=== PATIENT | female | born 1940 | race Caucasian/White ===

== ENCOUNTER 2019-12-27 11:45 | Outpatient (CLI) | payer MEDICARE, SELFPAY ==
--- NOTE | ~2019-12-27 | MM_ITS ---
EXAMINATION: MM screening [facility] BI w mei HISTORY: Screening mammogram TECHNIQUE: Craniocaudal and mediolateral oblique 3-D tomosynthesis images were obtained and synthetic 2-D images were generated. CAD analysis was submitted and interpreted. COMPARISON: 07/16/2018, 03/02/2017, 02/10/1916 BREAST PARENCHYMAL COMPOSITION: The breasts are almost entirely fatty. FINDINGS: A stable intramammary lymph node is present in the upper outer quadrant of the right breast . There is no evidence of suspicious mass, calcification, or architectural distortion to suggest jeff gnancy in either breast. There has been no suspicious interval change. IMPRESSION: 1. No mammographic evidence of malignancy. 2. Recommend routine screening mammography while the patient remains in good health. BI-RADS Category 2: Benign finding(s). Reviewed, dictated and finalized at location A. UCT PROMOTER SALES PERSON IMPRESSION: 1. No mammographic evidence of malignancy. 2. Recommend routine screening mammography while the patient remains in good he alth. BI-RADS Category 2: Benign finding(s).
== END 2019-12-27 11:46 | disposition home or self-care (01) ==
PROVIDERS: PCP Family Medicine; Visit Provider Family Medicine
DX: Z12.31 Encounter for screening mammogram for malignant neoplasm of breast (principal)
CPT/HCPCS: 77063; 77067

== ENCOUNTER 2021-03-15 15:14 | Outpatient (CLI) | payer MEDICARE, SELFPAY ==
--- NOTE | ~2021-03-15 | MM_ITS ---
EXAMINATION: MM screening [facility] BI w mei HISTORY: Screening mammogram TECHNIQUE: Craniocaudal and mediolateral oblique 3-D tomosynthesis images were obtained and synthetic 2-D images were generated. CAD analysis was submitted and interpreted. COMPARISON: 12/27/2019, 07/16/2018, 03/02/2017 BREAST PARENCHYMAL COMPOSITION: The breasts are almost entirely fatty. FINDINGS: A stable intramammary lymph node is again noted in the upper outer quadrant of the right br east. There is no evidence of suspicious mass, calcification, or architectural distortion to suggest malignancy in either breast. There has been no suspicious interval change. IMPRESSION: 1. No mammographic evidence of malignancy. 2. Recommend routine screening mammography while the patient remains in good health. BI-RADS Category 2: Benign finding(s). Reviewed, dictated and finalized at location A. IMPRESSION: 1. No mammographic evidence of malignancy. 2. Recommend routine screening mammography while the patient remains in good he alth. BI-RADS Category 2: Benign finding(s).
== END 2021-03-15 15:15 | disposition home or self-care (01) ==
PROVIDERS: PCP Family Medicine; Visit Provider Family Medicine
DX: Z12.31 Encounter for screening mammogram for malignant neoplasm of breast (principal)
CPT/HCPCS: 77063; 77067

== ENCOUNTER → 2022-04-16 15:13 | Outpatient (CLI) | payer MEDICARE, SELFPAY ==
--- NOTE | ~2022-04-16 | MM_ITS ---
EXAMINATION: MM screening [facility] BI w mei HISTORY: Screening mammogram TECHNIQUE: Craniocaudal and mediolateral oblique 3-D tomosynthesis images were obtained and synthetic 2-D images were generated. CAD analysis was submitted and interpreted. COMPARISON: 03/15/2021, 12/2019, 07/12/2018 bilateral screening mammogram examinations BREAST PARENCHYMAL COMPOSITION: The breasts are almost entirely fatty. FINDINGS: Occasional bilateral benign calcifications. Stable small circumscribed right axillary tail benign-appearing lymph node. There is no evidence of suspicious mass, calcification, or architectural distortion to suggest malignancy in either breast. There has been no suspicious interval change. IMPRESSION: 1. No mammographic evidence of malignancy. 2. Recommend routine screening mammography in one year. BI-RADS Category 2: Benign finding(s). Reviewed, dictated and finalized at location A.
--- NOTE | ~2022-04-16 | DEXA_ITS ---
Bone Density Report Name: JENIFFER MCCAULEY Age: 82 Sex: Female Ethnicity: White Date of : 1940 Indication: postmenopausal; screening for osteoporosis; parental hip fracture; height loss; prior fracture; hysterectomy; Referring Provider: MIGUE ROCK Study: Bone densitometry was performed. Exam Date: April 16, 2022 Accession number: [id number] Bone Density: Region BMD T-score Z-score Classification AP Spine (L1-L4) 1.146 0.9 3.7 Normal Femoral Neck (Left) 0.896 0.4 2.9 Normal Total Hip (Left) 0.950 0.1 2.3 Normal Femoral Neck (Right) 0.826 -0.2 2.3 Normal Total Hip (Right) 0.904 -0.3 2.0 Normal Total Hip Mean 0.927 -0.1 2.2 Normal World Health Organization criteria for BMD impression classify patients as: Normal (T-score at or above -1.0), Osteopenia (T-score between -1.0 and -2.5), or Osteoporosis (T-score at or below -2.5). 10-year Fracture Risk: FRAX not reported because: All T-scores for Spine Total, Hip Total, Femoral Neck at or above -1.0 Clinical Information Provided by Patient: Has had a low trauma fracture Parent has had a hip fracture Has the following medical conditions: Hysterectomy Patient maximum height was 64.0 Menopause Age: 52 No regular weight bearing exercise Drinks caffeinated beverages Onset of menses at age 10 Number of children 3 Impression: The patient has normal bone mass. The patient has risk factors, including: parental hip fracture, previous fracture. Discussion: BONE DENSITY IS ABOVE THE MINIMUM DESIRABLE LEVEL AT ALL SKELETAL SITES TESTED. This patient?s bone mineral density is above the minimum desirable level (T-score -1.0 or better) at all sites measured. The patient should follow a healthful lifestyle (good nutrition with adequate calcium and vitamin D, and appropriate weight-bearing exercise). Follow-Up: Consider repeating this study in 5 years or sooner if there is some new clinical indication. Reported by: ADRIAN on 04/16/2022 4:00:00 PM. Reviewed, dictated and finalized at location A. OSMAN
== END ==
PROVIDERS: PCP Family Medicine; Visit Provider Family Medicine
DX: Z12.31 Encounter for screening mammogram for malignant neoplasm of breast (principal); Z78.0 Asymptomatic menopausal state
CPT/HCPCS: 77063; 77067; 77080

== ENCOUNTER 2022-12-23 07:53 | Outpatient (CLI) | payer MEDICARE, SELFPAY ==
--- NOTE | ~2022-12-23 | US_ITS ---
EXAMINATION: US abdomen limited DATE: 12/23/2022 08:47 INDICATION: Epigastric pain TECHNIQUE: Multiple grayscale and Doppler ultrasound images of the abdomen were obtained. COMPARISON: None available FINDINGS: Bowel gas obscures visualization of the pancreas. The visualized portions of the pancreas a re unremarkable. The liver is normal with normal echogenicity and echotexture. No surface nodularity. Normal hepatopetal flow in the main portal vein. The gallbladder is normal with no abnormal wall thi ckening, pericholecystic fluid or stones. The normal common bile duct measures 3 mm. There was no son ographic Hancock sign. IMPRESSION: 1. Normal sonographic study of the gallbladder. Reviewed, dictated and finalized at location L. NCIAL RISK MANAGER
== END 2022-12-23 07:54 | disposition home or self-care (01) ==
PROVIDERS: PCP Family Medicine; Visit Provider Family Medicine
DX: R10.13 Epigastric pain (principal)
CPT/HCPCS: 76705

== ENCOUNTER 2023-01-01 20:55 | Observation (INO) | payer MEDICARE, SELFPAY ==
[2023-01-01] VITALS (11 sets, daily range): BP systolic 127; BP diastolic 74; PULSE 58–74; RESP 10–17; TEMP 36.5; O2SAT 97–100
--- NOTE | ~2023-01-01 | NM_ITS ---
EXAMINATION: NM iain stress w perfusion DATE: 01/02/2023 14:06 INDICATION: Chest pain. TECHNIQUE: Rest images were obtained following intravenous administration of 10.5 mCi Tc99m tetrofosm in (Myoview). The patient was infused intravenously with Lexiscan (regadenoson). Then, 33.9 mCi Tc99m tetrofosmin (Myoview) was administered intravenously, and stress images were obtained. Data was adama nstructed into short axis and horizontal and vertical long axis SPECT images. Gated SPECT images were also obtained. COMPARISON: Chest CT 01/30/2023 FINDINGS: There is no definite reversible or fixed perfusion abnormality to suggest ischemia or infar ction. There is no segmental wall motion abnormality. Left ventricular ejection fraction measures > 70%. IMPRESSION: 1. No definite ischemia or infarct. 2. Normal left ventricular ejection fraction measuring >70%. Reviewed, dictated and finalized at location A. ORATE DEVELOPMENT ANALYST
--- NOTE | ~2023-01-01 | CT_ITS ---
Clinical Indication: Chest pain, shortness of breath CT Scan of the Chest with Contrast: Technique: Contiguous sections were acquired throughout the chest after intravenous administration of 100 cc of Omnipaque 350. Dose reduction technique was used on this scan by utilizing automated expos ure control and iterative reconstruction technique. The dose-length product (DLP) was 170.41 mGy-cm. Findings: There is no evidence of any significant mediastinal, hilar or axillary lymphadenopathy. No large cent ral pulmonary embolus seen. Motion artifact limits evaluation for small, more peripheral pulmonary em boli. There is no evidence of aortic dissection or aneurysm. There is no evidence of pleural or pericardial effusion. 4 mm right lower lobe subpleural nodule noted (axial image 70). Lungs otherwise are essentially clear . Images through the upper abdomen reveal no abnormalities. Impression: No large central pulmonary embolus. Motion artifact limits evaluation for small, more peripheral pulm onary emboli. 4 mm right lower lobe subpleural nodule. According to Fleischner Society criteria, for a low-risk pat ient, no further follow-up required. For a high-risk patient, consider 12 month follow-up CT. Reviewed, dictated and finalized at [facility]. ING AND UNLOADING SUPERVISOR Impression: No large central pulmonary embolus. Motion artifact limits evaluation for small , more peripheral pulmonary emboli. 4 mm right lower lobe subpleural nodule. According to Fleischner Society criter ia, for a low-risk patient, no further follow-up required. For a high-risk kaycee ent, consider 12 month follow-up CT.
--- NOTE | ~2023-01-01 | XR_ITS ---
EXAMINATION: XR chest 1V portable DATE: 01/01/2023 21:41 INDICATION: Chest pain TECHNIQUE: frontal view of the chest was obtained. COMPARISON: Chest radiograph dated 07/04/2014 FINDINGS: Mild bronchial wall thickening in the bilateral infrahilar regions. No focal airspace opacities, pleu ral effusion or pneumothorax. The cardiomediastinal silhouette is normal. IMPRESSION: 1. Mild bronchial wall thickening in the bilateral infrahilar regions without focal airspace opacitie s which could represent bronchitis, reactive airway disease/asthma or minimal pulmonary edema. Reviewed, dictated and finalized at location A. STANT MANAGER IMPRESSION: 1. Mild bronchial wall thickening in the bilateral infrahilar regions without f ocal airspace opacities which could represent bronchitis, reactive airway disea se/asthma or minimal pulmonary edema.
--- NOTE | 2023-01-01 20:59 | ECG_ITS ---
Measurements Intervals [place] Rate: 69 P: 10 ID: 195 QRS: 3 QRSD: 86 T: 44 QT: 382 QTc: 410 Interpretive Statements SINUS RHYTHM NORMAL ECG NO PREVIOUS ECG AVAILABLE FOR COMPARISON Electronically Signed On 01-02-2023 13:05:30 FILM PROCESSOR by Stewart Perez M.D.
--- NOTE | 2023-01-01 21:28 | PC.NURSE ---
Patient states she is feeling better and her chest pain is at a 1 at this time
--- NOTE | 2023-01-01 21:34 | ED.ABDPAIN ---
HPI - Abdominal Pain General Chief Complaint: Abdominal Pain <DANYA Pickard Last Filed: 01/02/23 03:04> Stated Complaint: abd pain <DANYA Pickard Last Filed: 01/02/23 03:04> Time Seen by Provider: 01/01/23 21:21 <DANYA Pickard Last Filed: 01/02/23 03:04> History of Present Illness HPI narrative: Patient is an 82-year-old female with a history of GERD here for evaluation of intermittent episodes of chest pain over the past several days. Patient states that the pain comes on at random, lasting minutes for time, described as a pressure across the front of her chest. The pain resolves without intervention, possibly worse with exertion. Currently she feels the pain in her epigastric region, similar to her history of GERD. She states that the pain is associated with a woozy sensation in her head and some shortness of breath. Positive sick contacts. Denies cough, headache, vomiting, fevers, leg swelling or pain. <DANYA Pickard Last Filed: 01/02/23 03:04> Related Data Home Medications: Home Medications Medication Instructions Recorded Confirmed fluticasone propionate 50 1 spray intranasal DAILY 12/28/19 11/10/22 mcg/actuation nasal spray,suspension lactobacillus combination no.8 3 See Rx Instructions PO DAILY 12/28/19 11/10/22 billion cell capsule (Adult Probiotic) multivitamin with minerals-ferrous mg PO 12/28/19 11/10/22 sulfate 4.5 mg iron tablet (One Daily Multivitamins with Minerals) psyllium husk 0.52 gram capsule 0.52 gm PO DAILY 12/28/19 11/10/22 (Fiber (psyllium husk)) aspirin 81 mg tablet,delayed 81 mg PO DAILY 08/10/20 11/10/22 release loratadine 10 mg tablet (Claritin) 10 mg PO DAILY 08/14/20 11/10/22 <DANYA Pickard Last Filed: 01/02/23 03:04> Allergies/Adverse Reactions: Allergies Allergy/AdvReac Type Severity Reaction Status Date / Time nitrofurantoin Allergy Unknown unknown Verified 01/01/23 21:05 Sulfa (Sulfonamide Allergy Unknown Skin Verified 01/01/23 21:05 Antibiotics) irritation typhoid-paratyphoid vaccine Allergy Unknown unknown Verified 01/01/23 21:05 ciprofloxacin [From Cipro] AdvReac Intermediate tingling Verified 01/01/23 21:05 throughout body; electrical impulses all over NITROFURANTOIN MACROCRYSTAL Allergy Unknown unknown Uncoded 01/01/23 21:05 <Sonia Oden PA-C - Last Filed: 01/02/23 03:04> Review of Systems Review of Systems: Gen: Denies fevers or chills Eyes: Denies eye pain or visual change ENT: Denies congestion Respiratory: Reports shortness of breath CV: Reports chest pain GI: Reports epigastric abdominal pain denies burning, urgency, frequency or hematuria Musculoskeletal: Denies back pain or muscle pain Neuro: Denies numbness, tingling, weakness or focal weakness Skin: Denies rash Except as documented, all other systems reviewed and negative <DANYA Pickard Last Filed: 01/02/23 03:04> [facility] Past Medical History Medical History: Medical History Acquired pes planovalgus of right foot Arthritis Arthritis of foot, degenerative Carpal tunnel syndrome Cataract (~2015) Colon polyp (~2017) Fracture of left patella Hearing loss Kidney cysts (~2007) Skin cancer <DANYA Pickard Last Filed: 01/02/23 03:04> Surgical History Surgical History: Surgical History H/O: hysterectomy (~1999) History of carpal tunnel surgery <DANYA Pickard Last Filed: 01/02/23 03:04> Family History Family History: Family History Mother Hypertension Family history of elevated blood lipids Cerebrovascular accident, Onset Age: 92 Patient's mother is Family history of dementia Father
[2023-01-01] MEDS: ASPIRIN 81 MG CHEWABLE TABLET 324 MG PO (21:41)
[2023-01-01 22:05] LABS: Basophils Percent Auto 0.5 % (0.2-1.2); Eosinophils Absolute Auto 0.1 K/mm3 (0-0.3); Eosinophils Percent Auto 2.1 % (0-4.4); Hematocrit 37.8 % (37.0-47.0); Lymphocytes Absolute Auto 1.55 K/mm3 (0.9-3.2); Lymphocytes Percent Auto 35.6 % (18.3-44.2); Mean Corpuscular HGB Conc 31.7 g/dl (32-36); Mean Corpuscular Hemoglobin 27.3 pg (26-34); Mean Corpuscular Volume 86.1 fl (80-100); Mean Platelet Volume 11.6 fl (7.4-10.4); Monocytes Absolute Auto 0.5 K/mm3 (0.1-0.6); Monocytes Percent Auto 10.8 % (2.6-8.5); Neutrophils Absolute Auto 2.2 K/mm3 (1.3-6.7); Platelet Count Result 147 k/mm3 (150-375); Red Blood Count 4.39 M/mm3 (4.2-5.4); Red Cell Distribution Width 15.6 % (11.5-14.5); White Blood Count 4.4 K/mm3 (4.5-10.0)
[2023-01-01 22:16] LABS: Alanine Aminotransferase 22 U/L (6-35); Alkaline Phosphatase 55 U/L (38-126); Anion Gap 4 mmol/L (8-16); Aspartate Amino Transferase 28 U/L (14-36); Bilirubin,Total 0.5 mg/dL (0.2-1.3); Blood Urea Nitrogen 27 mg/dL (7-17); Calcium 8.7 mg/dL (8.4-10.2); Carbon Dioxide 29 mmol/L (22-30); Chloride 103 mmol/L (98-107); Estimated CRCL calculation 47 ml/min; Estimated Glomerular Filt Rate > 60; Glucose 93 mg/dL (65-110); Lipase 202 U/L (23-300); Sodium 136 mmol/L (137-145)
[2023-01-01 22:17] LABS: Prothrombin Time 13.2 Seconds (11.1-14.7)
[2023-01-01 22:18] LABS: Partial Thromboplastin Time 29.2 SECONDS (22.3-36.8)
[2023-01-01 22:27] LABS: Troponin I < 0.012 ng/mL (0.000-0.034)
[2023-01-01 22:42] LABS: Influenza A QL RT-PCR Negative (Negative); Influenza B QL RT-PCR Negative (Negative); SARS-CoV-2 RNA PCR Negative
[2023-01-01] MEDS: BELLADONNA ALK/PHENOB ELIX 10 ML, MAG HYDROX/ALUMINUM HYD/SIMETH 30 ML, LIDOCAINE HCL 2... PO (22:58)
[2023-01-01 23:57] LABS: D Dimer 1.45 ug/mL (<0.48)
[2023-01-02] VITALS (16 sets, daily range): BP systolic 101–140; BP diastolic 52–82; PULSE 55–69; RESP 9–23; TEMP 36.4–36.6; O2SAT 94–100; BMI 26.9
[2023-01-02] MEDS: SODIUM CHLORIDE 0.9% IV 1,000 ML 999 ML IV CONT (02:26)
[2023-01-02 04:16] LABS: Troponin I < 0.012 ng/mL (0.000-0.034)
--- NOTE | 2023-01-02 06:42 | ADMGEN ---
This patient, Desire Pearson, was admitted to Intensive Care Unit-10 on 634 at 01/02/2023. Patient/family oriented to hospital policies and general routines including ID bracelet, bed and alarms, visiting hours, pain management, procedures, bathroom and other care routines, personal items, smoking policy, room service/diet, and visiting hours. Information on how to activate the Rapid Response Team has been discussed. Patient/Family are encouraged to report perceived risks to care and to ask questions if they do not understand what they are told or what they should do.
--- NOTE | 2023-01-02 10:13 | PM.IMHP ---
H&P: HPI History of Present Illness Date/Time: 01/02/23 10:13 Chief Complaint: chest pain Narrative: this 82-year-old female who presents to the ER with pinning of burning sensation in the chest in the retrosternal area across the chest associated with shortness of breath lasting for few minutes which occurred last night. She does have history of GERD and is on famotidine. She was feeling a little woozy in her head and some shortness of breath associated with these symptoms. She has had episodes like this in the past also had Holter monitor which did not reveal any significant arrhythmias. She has no previous history of coronary artery disease in the past not had stress test done. In the ER she was evaluated with EKG which was normal sinus rhythm with no acute ST-T changes. She also had a troponin done which was negative and serial troponins will done which remained negative. See also had a CTA done which was negative for large PE. Denies any cough nausea vomiting or abdominal pain. She is admitted in this setting for further evaluation and management. Review of Systems Review of Systems: - CONSTITUTIONAL: Denies weight loss, fever and chills. - HEENT: Denies changes in vision and hearing - RESPIRATORY: reports SOB and denies cough. - CV: Denies palpitations and reports CP. - GI: Denies abdominal pain, nausea, vomiting and diarrhea. - : Denies dysuria and urinary frequency. - MSK: Denies myalgia and joint pain. - SKIN: Denies rash and pruritus. - NEUROLOGICAL: Denies headache and syncope. - PSYCHIATRIC: Denies recent changes in mood. Denies anxiety and depression. [facility] Past Medical History Medical History Acquired pes planovalgus of right foot Arthritis Arthritis of foot, degenerative Carpal tunnel syndrome Cataract (~2015) Colon polyp (~2017) Fracture of left patella Hearing loss Kidney cysts (~2007) Skin cancer Surgical History Surgical History H/O: hysterectomy (~1999) History of carpal tunnel surgery Family History Family History (Updated 01/02/23 @ 07:00 by Shaneka Luna RN) Mother Patient's mother is Family history of dementia Hypertension Cerebrovascular accident, Onset Age: 92 Father Family history of kidney disease, Onset Age: 81 Family history of malignant neoplasm of kidney Patient's father is Family history of Parkinson's disease Sibling Hypertension Other Family history of arthritis Family history of elevated blood lipids Family history of malignant neoplasm Family history of malignant neoplasm of breast in first degree relative Family history of osteoarthritis Social History Social History (Updated 11/10/22 @ 11:35 by Stephanie Sanabria [facility]) Smoking status: Never smoker Second hand tobacco smoke exposure: No Alcohol intake: never Substance use: never Substance use type: does not use Lack of Transportation: No Lack of Food: Never True Current Housing: I Have Housing Concerned About Future Housing: No Difficulty Paying Gas/Electric Bills: No Difficulty Paying for Meds: No Currently Unemployed: No Education: Master's Degree or Higher Difficulty w/ Childcare or Family Care: No Living arrangements: with family Occupation/Education: retired Gender identity (if verbalized by the patient): Female Sexual Orientation (if Verbalized by the Patient): Straight or Heterosexual Spiritual care concerns: No Agree to blood products: Yes Meds Home Medications and Allergies Home Medications Medication Instructions Recorded Confirmed Type fluticasone propionate 50 1 spray intranasal QPM 12/28/19 01/02/23 History mcg/actuation nasal spray,suspension lactobacillus combination no.8 3 See Rx Instructions PO DAILY 12/28/19 01/02/23 History billion cell capsule (Adult Probiot
--- NOTE | 2023-01-02 10:30 | EST_ITS ---
Patient Info Name: Desire Pearson Age: 82 years : 1940 Gender: Female Ht: 62 in Wt: 150 lbs BSA: 1.74 m2 HR: 54 bpm BP: 129 / 80 mmHg Heart Rhythm: Sinus Rhythm Exam Date: 01/02/2023 1:09 PM Exam Location: [facility] Stress Patient Status: Outpatient Admit Date: 01/02/2023 Staff Ordering Physician: Jadiel Wells MD Attending Provider: Claudia Valencia MD Exercise Technologist: Danika Dutta CT Exercise Physician: Garrett Zuñiga DO Exam Type: CA stress iain w NM Study Info Indications R07.9 - Chest pain, unspecified A regadenoson stress test was performed. Summary 1. 1. Negative lexiscan stress test for ischemic ST changes by ECG criteria. 2. 2. Stable hemodynamics throughout the test. 3. 3. Nuclear scan to follow and will be reported separately. Please correlate with it. 4. 4. Patient informed of the above results. Protocol: Lexiscan Stress ECG Details Stage: REST Duration (min): 0 min : 54 sec HR (bpm): 55 SBP (mmHg): 129 DBP (mmHg): 80 Stage: REST Duration (min): 5 min : 33 sec HR (bpm): 64 SBP (mmHg): 129 DBP (mmHg): 80 Stage: STAGE 1 Duration (min): 0 min : 59 sec HR (bpm): 91 SBP (mmHg): 128 DBP (mmHg): 74 Stage: RECOVERY Duration (min): 1 min : 0 sec HR (bpm): 94 SBP (mmHg): 128 DBP (mmHg): 74 Stage: RECOVERY Duration (min): 2 min : 0 sec HR (bpm): 90 SBP (mmHg): 128 DBP (mmHg): 74 Stage: RECOVERY Duration (min): 3 min : 0 sec HR (bpm): 91 SBP (mmHg): 135 DBP (mmHg): 72 Stage: RECOVERY Duration (min): 3 min : 19 sec HR (bpm): 88 SBP (mmHg): 135 DBP (mmHg): 72 Rest HR: 64 bpm Peak HR: 94 bpm Rest Sys BP: 129 mmHg Peak Sys BP: 135 mmHg Max Pred HR: 136 bpm % Max Pred HR: 69 % Target HR: 116 bpm Max RPP: 12,690 bpm*mmHg Termination Reason: Completed protocol Cardiac Symptoms: Shortness of breath Total Time: 1 min : 0 sec Rest Carl BP: 80 mmHg Peak Carl BP: 72 mmHg Total Dose: 0.4 mg Resting ECG Sinus rhythm. Stress ECG No ST changes. Arrhythmias None. Report Signatures
[2023-01-02] MEDS: ACIDOPHILUS/BULGARICUS CHEWABLE TABLET 1 TABLET PO (14:16)
[2023-01-02] MEDS: FAMOTIDINE 20 MG TABLET 40 MG PO (14:16)
[2023-01-02] MEDS: PANTOPRAZOLE SODIUM IV 40 MG VIAL IV PUSH (14:16)
[2023-01-02] MEDS: LORATADINE 10 MG TABLET PO (14:16)
[2023-01-02] MEDS: MULTIVITAMINS /C LUTEIN (CENTRUM SILVER) TABLET *BKC 1 TAB PO (14:17)
--- NOTE | 2023-01-02 15:51 | PM.DS ---
DS: Admitting Diagnosis Discharge Date 01/02/2023 Admitting Diagnosis Chest pain DS: Discharge Diagnosis Discharge Diagnosis (1) Atypical chest pain: Code(s): R07.89 - Other chest pain Status: Acute (2) GERD (gastroesophageal reflux disease): Code(s): K21.9 - Gastro-esophageal reflux disease without esophagitis Status: Acute DS: Summary Hospital Course Hospital Course: #? atypicalchest pain EKG normal sinus rhythm.? Troponins negative x3.? Chest x-ray with mild bronchial wall thickening in the bilateral infrahilar regions without focal airspace opacities which could represent bronchitis reactive airway disease/ asthma or mild pulmonary edema. CTA is negative for large PE? And no evidence of aortic dissection or aneurysm.? There is 4 mm right lower lobe subpleural nodule otherwise lungs are essentially clear.COVID/flu negative.? Discussed finding with patient.? She was further evaluated with this stress test which came back normal. This is most likely related to her underlying GERD. She is on famotidine at home will was changed to Protonix. She will continue to follow-up with her PCP as an outpatient basis. ?#History of GERD? start Protonix ?#elevated D-dimer? CTA negative for PE ?#DVT prophylaxis? SCDs ?#Code status full code Time Spent with Patient Time attestation: Total time spent providing and/or coordinating discharge services: 45 minutes Exam Narrative: GENERAL: The patient is well developed, not in acute distress HEENT: Nonicteric sclerae, PERRLA, EOMI. Oropharynx clear. Moist mucous membranes. Conjunctivae appear well perfused. CHEST: Chest wall is nontender. HEART: Regular rate and rhythm without murmur, rubs, or gallops LUNGS: Clear to auscultation bilaterally. no respiratory distress ABDOMEN: Soft, positive bowel sounds, non-tender, no organomegaly. SKIN: No rash, no excessive bruising, petechiae, or purpura. NEUROLOGIC: Cranial nerves II-XII intact, alert and oriented x 3, no gross motor deficits EXTREMITIES: no edema, cyanosis or clubbing DS: Data Data Completed and Pending Labs on day of discharge: Labs from last 24 hours 01/02/23 01/01/23 01/01/23 03:44 21:43 21:43 WBC RBC Hgb Hct MCV MCH MCHC RDW Plt Count MPV Immature Gran % (Auto) Neut % (Auto) Lymph % (Auto) [place] % (Auto) Eos % (Auto) Baso % (Auto) Lymph # (Auto) [place] # (Auto) Eos # (Auto) Baso # (Auto) Abs Immat Gran (auto) Absolute Neuts (auto) Absolute Nucleated RBC Nucleated RBC % PT INR APTT D-Dimer 1.45 H Sodium Potassium Chloride Carbon Dioxide Anion Gap BUN Creatinine Estim Creat Clear Calc Estimated GFR Glucose Calcium Total Bilirubin AST ALT Alkaline Phosphatase Troponin I < 0.012 Total Protein Albumin Lipase Influenza A (RT-PCR) Negative Influenza B (RT-PCR) Negative SARS-CoV-2 RNA (RT-PCR) Negative 01/01/23 01/01/23 01/01/23 21:43 21:43 21:43 WBC 4.4 L RBC 4.39 Hgb 12.0 Hct 37.8 MCV 86.1 MCH 27.3 MCHC 31.7 L RDW 15.6 H Plt Count 147 L MPV 11.6 H Immature Gran % (Auto) 0.0 Neut % (Auto) 51.0 Lymph % (Auto) 35.6 [place] % (Auto) 10.8 H Eos % (Auto) 2.1 Baso % (Auto) 0.5 Lymph # (Auto) 1.55 [place] # (Auto) 0.5 Eos # (Auto) 0.1 Baso # (Auto) 0.0 Abs Immat Gran (auto) 0.00 Absolute Neuts (auto) 2.2 Absolute Nucleated RBC 0.0 Nucleated RBC % 0.0 PT 13.2 INR 1.0 APTT 29.2 D-Dimer Sodium 136 L Potassium 4.0 Chloride 103 Carbon Dioxide 29 Anion Gap 4 L BUN 27 H Creatinine 0.70 Estim Creat Clear Calc 47 Estimated GFR > 60 Glucose 93 Calcium 8.7 Total Bilirubin 0.5 AST 28 ALT 22 Alkaline Phosphatase 55 Troponin I < 0.012 Total Protein 7.0 Albumin 4.0 Lipase 202 Influenza A (R
== END 2023-01-02 16:33 | disposition home or self-care (01) ==
LOC: ANHED 21:44 → ANHICU 01-02 06:39
PROVIDERS: Emergency Medicine; Admitting Provider Internal Medicine; Emergency Provider Physician Assistant; PCP Family Medicine; Visit Provider Internal Medicine
DX: R07.89 Other chest pain (principal); K21.9 Gastro-esophageal reflux disease without esophagitis; R06.02 Shortness of breath; R79.89 Other specified abnormal findings of blood chemistry; R91.8 Other nonspecific abnormal finding of lung field; R91.1 Solitary pulmonary nodule; Z20.822 Contact with and (suspected) exposure to COVID-19; Z79.82 Long term (current) use of aspirin; Z79.899 Other long term (current) drug therapy
CPT/HCPCS: 36415; 71045; 71275; 78452; 80053; 83690; 84484; 85025; 85380; 85610; 85730; 87636; 93005; 93017; 96361; 96374; 99285; A9270; A9502; C9113; G0378; J2405; J2785; J7030; Q9967

== ENCOUNTER 2023-04-08 14:00 | Outpatient (RCR) | payer MEDICARE, SELFPAY ==
--- NOTE | 2023-03-09 15:39 | OTOPEVAL1 ---
Assessment and note entered by Tye Sim, DALLAS/Keith, CHT Evaluation Information Assessment Status Evaluation Diagnosis Right wrist pain Onset Unknown Subjective Information Patient reporting right wrist pain. She states she's had wrist pain for a couple of years, but that it has gotten worse, especially in the last year or so. She is s/p carpal tunnel release Dec 2022. She wears a brace at night. Reporting pain with any sort of heavy/heavier lifting. Reports pain when her wrist is in an odd angle and she tries to lift something. She also reports weakness. Pointing to the ulnar side of the wrist as the site of her pain. Reported Pain Level Pain Score 0: Self Report Additional Pain Score Comments No pain at rest today. Right wrist pain increased to 1-2/10 after MMT. Worst pain in the last week is 4/10 with lifting. This pain is very sudden and resolves quickly. All localized to the ulnar side of the R wrist. Assessment OT Clinical Summary Patient referred to outpatient hand therapy with dx of right wrist pain. She cannot pinpoint a particular injury to the wrist, but rather that the pain has progressively gotten worse over the past few years. She does have a prominent ulnar styloid as well as slight ulnar drift of the fingers, indicative of RA. She reports never being tested for RA, however. In general she does have gross right wrist and hand weakness and pain that she will benefit from skilled treatment. Treatments to include HEP instruction and progression, modalities for pain, and strengthening to improve the functional mechanics of the involved, painful joints. Plan of Care Interventions Therapeutic Exercise,Manual Therapy,Therapeutic Activities,Hot Pack/Cold Pack,Ultrasound,Paraffin OT Services Indicated Yes Treatment Frequency and 1x/week for 4 weeks Duration These treatments will address the objective and functional deficits as defined above. The patient will be advanced safely and appropriately in order for the patient to progress towards his/her prior level of function. Additional exercises will be introduced and as well as a comprehensive home exercise program upon discharge, if needed, ?to ensure carryover of functional gains achieved in the clinic. This treatment plan has been reviewed and agreement upon by the patient.
--- NOTE | 2023-04-08 14:53 | OTOPDC ---
Assessment and note entered by Tye Sim, JERRYR/Keith, CHT Evaluation Information Assessment Status Discharge Diagnosis Right wrist pain Onset Unknown Subjective Information Patient has participated in 5 hand therapy sessions. She reports that she has been having less wrist pain with hand/UE use. Reports she still feels a little weak, but has been working on visual artist strengthening and wrist strengthening with 1 lb at home. States 2 lbs is still too heavy. Patient does have some hypothenar eminence atrophy noted in the right hand. With ulnar nerve glides she does have some involuntary twitching of the right pinky also. We have been working on nerve glides as well as improved body mechanics to reduce ulnar nerve irritation. Reported Pain Level Pain Score 0: Self Report Additional Pain Score Comments No pain at rest. Reporting 1/10 pain at worst in the past week. This improved from 4/10. Assessment OT Clinical Summary Patient referred to outpatient hand therapy with dx of right wrist pain. She cannot pinpoint a particular injury to the wrist, but rather that the pain has progressively gotten worse. Overall the patient has made progress over the past 4 weeks with reduced pain and improved strength. She does have signs/symptoms of ulnar nerve irritation for which she has been completing nerve flossing exercises. Therapy has also been focusing on strengthening of the wrist and hand. 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 At this time she is independent with all materials. Plan to discharge the patient independent with HEP. She is in agreement. Plan for her to complete her HEP independently until her next MD follow up. Plan of Care OT Services Indicated No
== END 2023-04-09 09:32 | disposition home or self-care (01) ==
LOC: ANHOT 14:00
PROVIDERS: PCP Family Medicine; Visit Provider Family Medicine
DX: M25.539 Pain in unspecified wrist (principal)
CPT/HCPCS: 97018; 97110; 97140; 97166

== ENCOUNTER → 2023-05-22 08:07 | Outpatient (CLI) | payer MEDICARE, SELFPAY ==
--- NOTE | ~2023-05-22 | XR_ITS ---
Thoracic spine: Clinical Indication: Back pain AP and lateral views were performed. No fracture is seen. There is normal alignment of the vertebrae. There is advanced degenerative disc narrowing at T11-T12. Remaining disc spaces are relatively well-preserved. Paravertebral soft tissue s appear normal. Impression: Advanced degenerative disc narrowing at T11-T12. Reviewed, dictated and finalized at location . Impression: Advanced degenerative disc narrowing at T11-T12.
--- NOTE | ~2023-05-22 | XR_ITS ---
Lumbosacral Spine: AP, oblique, and lateral views Clinical History: Pain COMPARISON: 12/27/2018 Findings: There is 28 degrees dextroscoliosis of lumbar spine. No fracture or subluxation evident oth erwise. There is advanced facet arthropathy throughout the lumbar spine, worst at the lower lumbar le vels. There is moderate to advanced degenerative disc narrowing at L3-L4, L4-L5, L5-S1. The sacroilia c joints are normally outlined. Impression: 28 degree of dextroscoliosis. Advanced degenerative spondylitic changes, as detailed above. Reviewed, dictated and finalized at location M. Impression: 28 degree of dextroscoliosis. Advanced degenerative spondylitic changes, as detailed above.
== END ==
PROVIDERS: PCP Family Medicine; Visit Provider Family Medicine
DX: M54.9 Dorsalgia, unspecified (principal); M41.9 Scoliosis, unspecified; M47.816 Spondylosis without myelopathy or radiculopathy, lumbar region; M48.04 Spinal stenosis, thoracic region
CPT/HCPCS: 72072; 72110

== ENCOUNTER 2023-05-22 08:39 | Outpatient (CLI) | payer MEDICARE, SELFPAY ==
[2023-05-22 15:25] LABS: Basophils Percent Auto 0.1 % (0.2-1.2); Eosinophils Percent Auto 0.1 % (0-4.4); Hemoglobin 12.3 g/dL (12.0-15.0); Immature Granulocyte Absolute 0.01 K/mm3 (0.00-0.031); Immature Granulocyte Percent A 0.1 % (0-0.5); Lymphocytes Absolute Auto 0.81 K/mm3 (0.9-3.2); Lymphocytes Percent Auto 10.5 % (18.3-44.2); Mean Corpuscular HGB Conc 31.5 g/dl (32-36); Mean Corpuscular Hemoglobin 28.4 pg (26-34); Mean Corpuscular Volume 90.1 fl (80-100); Mean Platelet Volume 12.7 fl (7.4-10.4); Monocytes Absolute Auto 0.1 K/mm3 (0.1-0.6); Monocytes Percent Auto 1.6 % (2.6-8.5); Neutrophils Absolute Auto 6.7 K/mm3 (1.3-6.7); Neutrophils Percent Auto 87.6 % (45.5-73.1); Platelet Count Result 132 k/mm3 (150-375); Red Blood Count 4.33 M/mm3 (4.2-5.4); Red Cell Distribution Width 14.5 % (11.5-14.5); White Blood Count 7.7 K/mm3 (4.5-10.0)
[2023-05-22 17:13] LABS: Alanine Aminotransferase 25 U/L (6-35); Alkaline Phosphatase 64 U/L (38-126); Anion Gap 7 mmol/L (8-16); Aspartate Amino Transferase 36 U/L (14-36); Bilirubin,Total 0.7 mg/dL (0.2-1.3); Blood Urea Nitrogen 34 mg/dL (7-17); Calcium 9.4 mg/dL (8.4-10.2); Carbon Dioxide 27 mmol/L (22-30); Chloride 104 mmol/L (98-107); Cholesterol 184 mg/dL (0-200); Estimated Glomerular Filt Rate > 60; Glucose 133 mg/dL (65-110); HDL Direct 69 mg/dL; Potassium 4.4 mmol/L (3.4-5.0); Sodium 138 mmol/L (137-145); Triglycerides 47 mg/dL (<150)
[2023-05-22 17:24] LABS: LDL Cholesterol Direct 87 mg/dL
[2023-05-22 17:51] LABS: Thyroid Stimulating Hormone Reflex 0.556 uIU/mL (0.465-4.68)
== END 2023-05-22 08:40 | disposition home or self-care (01) ==
LOC: ANHGOSHLAB 08:40
PROVIDERS: PCP Family Medicine; Visit Provider Family Medicine
DX: E78.2 Mixed hyperlipidemia (principal); R20.2 Paresthesia of skin; R53.83 Other fatigue; E53.8 Deficiency of other specified B group vitamins; D72.819 Decreased white blood cell count, unspecified
CPT/HCPCS: 36415; 80053; 80061; 82607; 84443; 85025

== ENCOUNTER 2023-10-23 08:24 | Outpatient (CLI) | payer MEDICARE, SELFPAY ==
[2023-10-23 13:15] LABS: Alanine Aminotransferase 22 U/L (6-35); Albumin Level 3.5 g/dL (3.5-5.1); Alkaline Phosphatase 57 U/L (38-126); Anion Gap 9 mmol/L (8-16); Aspartate Amino Transferase 36 U/L (14-36); Bilirubin,Total 0.9 mg/dL (0.2-1.3); Blood Urea Nitrogen 28 mg/dL (7-17); Calcium 8.9 mg/dL (8.4-10.2); Carbon Dioxide 26 mmol/L (22-30); Chloride 103 mmol/L (98-107); Estimated Glomerular Filt Rate > 60; Glucose 127 mg/dL (65-110); Potassium 3.9 mmol/L (3.4-5.0); Sodium 138 mmol/L (137-145)
[2023-10-23 13:32] LABS: Hemoglobin A1C 5.4 % (<5.7)
== END 2023-10-23 08:25 | disposition home or self-care (01) ==
LOC: ANHGOSHLAB 08:25
PROVIDERS: PCP Family Medicine; Visit Provider Family Medicine
DX: R73.9 Hyperglycemia, unspecified (principal)
CPT/HCPCS: 36415; 80053; 83036

== ENCOUNTER 2024-02-23 14:45 | Outpatient (RCR) | payer MEDICARE, SELFPAY ==
--- NOTE | 2024-01-19 15:13 | OTOPEVAL1 ---
Assessment and note entered by Tye Sim, DALLAS/Keith, CHT Evaluation Information Assessment Status Evaluation Diagnosis De Quervain's, CMC OA Subjective Information Patient reports she received an injection to the 1st dorsal compartment ~4 weeks ago. She reports her pain has improved a lot since the injection. She reports some residual intermitting pain, especially with heavy lifting. She reports light tasks are feeling better. Reported Pain Level Pain Score 0: Self Report Additional Pain Score Comments No pain at rest. 1/10 pain with Angel's. Occasionally she gets sudden, sharp pains through the wrist. 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 She presents with residual pain/soreness and stiffness when moving through full ROM at the wrist and thumb. Grossly decreased strength for ADLs. Skilled OT indicated for use of modalities, manual therapy, therapeutic exercise, and HEP instruction and progression to facilitate optimal functional pain- free use of the left hand. Plan of Care Interventions Therapeutic Exercise,Manual Therapy,Therapeutic Activities,Hot Pack/Cold Pack,Paraffin OT Services Indicated Yes Treatment Frequency and 1x/week for 4 visits Duration These treatments will address the objective and functional deficits as defined above. The patient will be advanced safely and appropriately in order for the patient to progress towards his/her prior level of function. Additional exercises will be introduced and as well as a comprehensive home exercise program upon discharge, if needed, ?to ensure carryover of functional gains achieved in the clinic. This treatment plan has been reviewed and agreement upon by the patient.
--- NOTE | 2024-01-19 15:13 | OPREHPOC ---
Outpatient Therapy Plan of Care This is a Multidisciplinary Plan of Care that may contain components documented by all disciplines (PT, OT, and ST.) OT Problem 1 OT Problem #1 Knowledge Deficit OT Goal 1 Goal 1. Patient to be independent with instructed materials. Target Visit 5 OT Problem 2 OT Problem #2 Pain OT Goal 1 Goal 1. Patient to report no pain with lifting pots/ pans. Target Visit 5 OT Problem 3 OT Problem #3 Impaired Strength OT Goal 1 Goal 1. Patient to be able to complete wrist strengthening with 1 lb. free weight x20 reps in all planes without pain. 2. Patient to be able to complete research pharmacist strengthening with yellow theraputty x5 minutes without pain. Target Visit 5
--- NOTE | 2024-02-23 15:42 | OTOPDC ---
Assessment and note entered by Tye Sim, OTR/Keith, CHT OT Discharge Summary 02/23/24 Diagnosis De Quervain's, CMC OA Subjective Information Patient has been participating in OT focusing on improving functional strength of the left wrist/ hand. She reports no pain with use just feeling residual weakness. She is strengthening with 2 lb. free weights and putty. She reports good compliance with HEP. Reported Pain Level Pain Score 0: Self Report Assessment OT Clinical Summary Patient referred to OT with left wrist pain and dx of de Quervain's and CMC OA. Reassessment completed today. Patient has made great progress with reduced pain and is compliant with strengthening HEP. Reviewed strengthening exercises today and added some proximal strengthening to reduce distal strain with ADLs. Encouraged her to continue to work exercises into her routine for optimal results long-term. Patient is in agreement with discharge today. D/C with HEP. Plan of Care OT Services Indicated No
== END 2024-02-24 14:09 | disposition home or self-care (01) ==
LOC: ANHGOSHOT 14:45
PROVIDERS: PCP Family Medicine; Visit Provider Physician Assistant
DX: M18.12 Unilateral primary osteoarthritis of first carpometacarpal joint, left hand (principal); M65.4 Radial styloid tenosynovitis [de Quervain]
CPT/HCPCS: 97018; 97110; 97140; 97165

== ENCOUNTER 2024-03-08 18:46 | Emergency (ER) | payer MEDICARE, SELFPAY ==
[2024-03-08] VITALS (8 sets, daily range): BP systolic 107–148; BP diastolic 73–74; PULSE 63–73; RESP 15–20; TEMP 36.6; O2SAT 94–99
--- NOTE | ~2024-03-08 | XR_ITS ---
EXAMINATION: XR chest 2V DATE: 03/08/2024 19:05 INDICATION: Cardiac arrhythmia. TECHNIQUE: Frontal and lateral views of the chest were obtained. COMPARISON: Chest single view 01/01/2023 FINDINGS: There is mild scarring at the lung apices. Calcified right lung nodules are consistent with old granulomatous disease. No pleural effusion or pneumothorax. The heart size is normal. IMPRESSION: 1. No acute cardiopulmonary disease. Reviewed, dictated and finalized at location E.
--- NOTE | 2024-03-08 18:49 | ECG_ITS ---
SEE SCANNED COPY FOR CONFIRMED REPORT MTDD
[2024-03-08 19:09] LABS: Basophils Percent Auto 0.7 % (0.2-1.2); Eosinophils Absolute Auto 0.1 K/mm3 (0-0.3); Eosinophils Percent Auto 1.7 % (0-4.4); Hematocrit 39.7 % (37.0-47.0); Hemoglobin 12.8 g/dL (12.0-15.0); Immature Granulocyte Absolute 0.01 K/mm3 (0.00-0.031); Immature Granulocyte Percent A 0.2 % (0-0.5); Lymphocytes Absolute Auto 1.97 K/mm3 (0.9-3.2); Lymphocytes Percent Auto 36.7 % (18.3-44.2); Mean Corpuscular HGB Conc 32.2 g/dl (32-36); Mean Corpuscular Hemoglobin 28.3 pg (26-34); Mean Corpuscular Volume 87.6 fl (80-100); Mean Platelet Volume 12.1 fl (7.4-10.4); Monocytes Absolute Auto 0.5 K/mm3 (0.1-0.6); Monocytes Percent Auto 9.9 % (2.6-8.5); Neutrophils Absolute Auto 2.7 K/mm3 (1.3-6.7); Neutrophils Percent Auto 50.8 % (45.5-73.1); Platelet Count Result 148 k/mm3 (150-375); Red Blood Count 4.53 M/mm3 (4.2-5.4); Red Cell Distribution Width 17.3 % (11.5-14.5); White Blood Count 5.4 K/mm3 (4.5-10.0)
[2024-03-08 19:14] LABS: Alanine Aminotransferase 20 U/L (6-35); Albumin Level 4.1 g/dL (3.5-5.1); Alkaline Phosphatase 53 U/L (38-126); Anion Gap 7 mmol/L (4-12); Aspartate Amino Transferase 31 U/L (14-36); Bilirubin,Total 0.8 mg/dL (0.2-1.3); Blood Urea Nitrogen 27 mg/dL (7-17); Calcium 9.3 mg/dL (8.4-10.2); Carbon Dioxide 24 mmol/L (22-30); Chloride 109 mmol/L (98-107); Estimated CRCL calculation 40 ml/min; Estimated Glomerular Filt Rate > 60; Glucose 100 mg/dL (65-110); Lipase 244 U/L (23-300); Potassium 4.6 mmol/L (3.4-5.0); Sodium 140 mmol/L (137-145)
[2024-03-08 19:16] LABS: INR 0.9; Prothrombin Time 12.9 Seconds (11.1-14.7)
[2024-03-08 19:26] LABS: Troponin I < 0.012 ng/mL (0.000-0.034)
--- NOTE | 2024-03-08 20:33 | ED.ARRPALP ---
HPI - Arrhythmia/Palpitations General Chief Complaint: Arrhythmia/Palpitations Stated Complaint: palpitations Time Seen by Provider: 03/08/24 18:50 Source: patient Mode of arrival: ambulatory Limitations: no limitations History of Present Illness HPI narrative: 83-year-old with a history of CVA, hypertension here with the complaints of palpitations on and off for past several weeks. Patient states that on February 21, 2024 she had CVA and she was placed on Crestor and aspirin. Patient states that she has irregular heartbeat mostly in the evenings and night. She is presently wearing a Holter monitor. She denies any chest pain or shortness of breath or lightheadedness be MD complaint: irregular heart beat Onset (ago): week(s) Duration: intermittent Severity: moderate Associated symptoms: denies other symptoms Related Data Home Medications Medication Instructions Recorded Confirmed fluticasone propionate 50 1 spray intranasal QPM 12/28/19 02/22/24 mcg/actuation nasal spray,suspension lactobacillus combination no.8 3 See Rx Instructions PO DAILY 12/28/19 02/22/24 billion cell capsule (Adult Probiotic) multivitamin with minerals-ferrous 4.5 mg PO DAILY 12/28/19 02/22/24 sulfate 4.5 mg iron tablet (One Daily Multivitamins with Minerals) psyllium husk 0.52 gram capsule 0.52 gm PO DAILY 12/28/19 02/22/24 (Fiber (psyllium husk)) loratadine 10 mg tablet (Claritin) 10 mg PO DAILY 08/14/20 02/22/24 azelastine 0.05 % eye drops 1 drp EACH EYE BID 02/27/23 02/22/24 aspirin 81 mg tablet,delayed 81 mg PO DAILY 02/22/24 02/22/24 release mv-mn-folic 200 mcg-vit K 15 cap PO 02/22/24 02/22/24 mcg-lutein 5 mg-zeaxanthin 1 mg capsule (PreserVision AREDS 2 Plus Multivit) Allergies Allergy/AdvReac Type Severity Reaction Status Date / Time nitrofurantoin Allergy Unknown unknown Verified 03/08/24 18:56 Sulfa (Sulfonamide Allergy Unknown Skin Verified 03/08/24 18:56 Antibiotics) irritation typhoid-paratyphoid vaccine Allergy Unknown unknown Verified 03/08/24 18:56 ciprofloxacin [From Cipro] AdvReac Intermediate tingling Verified 03/08/24 18:56 throughout body; electrical impulses all over NITROFURANTOIN MACROCRYSTAL Allergy Unknown unknown Uncoded 02/22/24 09:10 Review of Systems Review of Systems: All systems reviewed & are unremarkable except as noted in HPI and below Constitutional: Constitutional: Reports no additional constitutional complaints Eyes: Eyes: Reports no additional eye complaints ENT: Reports system reviewed and no additional complaints, except as documented Cardiovascular: Cardiovascular: Reports as per HPI Respiratory: Respiratory: Reports no additional respiratory complaints Gastrointestinal: Gastrointestinal: Reports no additional gastrointestinal complaints Musculoskeletal: Musculoskeletal: Reports no additional musculoskeletal complaints Integumentary/Breasts: Skin/Breast: Reports system reviewed and no additional complaints, except as docu Neurologic: Reports system reviewed and no additional complaints, except as documented Psychiatric: Psychiatric: Reports no additional psychiatric complaints PMFSH Past Medical History Medical History Acquired pes planovalgus of right foot Arthritis Arthritis of foot, degenerative Carpal tunnel syndrome Cataract (~2015) Colon polyp (~2017) CVA (cerebral vascular accident) Fracture of left patella Hearing loss Kidney cysts (~2007) 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
== END 2024-03-08 20:43 | disposition home or self-care (01) ==
PROVIDERS: Emergency Provider Family Medicine; PCP Family Medicine
DX: R00.2 Palpitations (principal); I10 Essential (primary) hypertension; M19.079 Primary osteoarthritis, unspecified ankle and foot; Z86.73 Personal history of transient ischemic attack (TIA), and cerebral infarction without residual deficits; Z86.010 Personal history of colon polyps; Z85.828 Personal history of other malignant neoplasm of skin; Z90.710 Acquired absence of both cervix and uterus; Z79.82 Long term (current) use of aspirin; I49.1 Atrial premature depolarization
CPT/HCPCS: 36415; 71046; 80053; 83690; 84484; 85025; 85610; 85730; 93005; 99284

== ENCOUNTER 2024-05-23 11:20 | Outpatient (CLI) | payer MEDICARE, SELFPAY ==
[2024-05-25 01:49] LABS: TSH QUEST 2.51 mIU/L (0.40-4.50)
== END 2024-05-23 11:21 | disposition home or self-care (01) ==
LOC: ANHGOSHLAB 11:22
PROVIDERS: PCP Family Medicine; Visit Provider Internal Medicine Cardiovascular Disease
DX: I49.1 Atrial premature depolarization (principal)
CPT/HCPCS: 36415; 84481; 86376

== ENCOUNTER 2024-08-16 07:45 | Outpatient (CLI) | payer MEDICARE, SELFPAY ==
--- NOTE | 2024-09-12 10:05 | WPDSLEEPSTUD ---
Sleep Study Date of Study: 08/16/24 Ordering Provider: Clari Brink MD Interpreting Physician: Suzanne Hopkins MD Sleep Study Type: Polysomnogram Height: 1.57 m Weight: 68.039 kg Body Mass Index: 27.4 Neck Circumference (inches): 13 [employer]: 14 Reason for Sleep Study Hypersomnolence; palpitations; history of premature atrial tachycardia and insomnia * 05/04/2012 basic polysomnogram with and apnea hypopnea index of 2.4 Sleep History Desire Pearson is an 84-year-old woman with complaints of excessive daytime sleepiness. The patient had a TIA in January of 2024. Her medical comorbidities include arthritis, stroke, hearing loss, kidney cysts. She has difficulty falling asleep and staying asleep. 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 There may be a family history of sleep disordered breathing, she reports that her mother had loud snoring and ?was catching her breath in ?while sleeping. She uses fluticasone nasal spray. She rarely awakens at night with heartburn, belching or coughing. She frequently has difficulty sleeping when she has a cold. She does not wake up gasping for breath at night. She does not sweat excessively at night however she frequently has palpitations and irregular heartbeats in the day and the night but it is more noticeable to her at night. She occasionally falls asleep during the day, rarely falls asleep involuntarily, and rarely falls asleep while driving. She does not have loss of muscle tone with strong emotion. She occasionally has daytime difficulties due to excessive sleepiness. She is retired. She does not feel paralyzed on waking or falling asleep. She rarely has vivid dreamlike scenes upon awakening or falling asleep. She does not feel afraid to go to sleep. She rarely has nightmares. She rarely remembers her dreams. She frequently has racing thoughts. She rarely feels sad or depressed. She occasionally has anxiety. She occasionally notices parts of her body jerking. She occasionally kicks at night. She occasionally has crawling and aching feelings in her legs. She rarely has any kind of leg pain at night. She rarely has morning jaw pain. She is not aware whether not she grinds her teeth at night. She rarely is bothered by pain during the day. She is not awakened by pain during the night. She occasionally wakes up feeling stiff in the morning. She rarely wakes up with sore or achy muscles. She occasionally wakes up with pain in the neck and spine. She has occasional headaches. Her normal bedtime is 10:30 p.m., with a variable time to sleep onset. She typically awakens between 1 and 3 times during the night. On initial awakening to sleep. If she wakes the same time she may read. On the 3rd awakening she gets up and goes to another room to read. If she awakens a 4th time she will attend to some paperwork and try to get something accomplished. Her wake time varies. She keeps this same sleep pattern on weekends. She estimates getting 6 hours of sleep most nights. She feels refreshed after a short 10-15 minute nap. She is usually drowsy or tired upon awakening, and the level of tiredness will depend on how much sleep she had the night before. She usually feels better in the morning compared to other times of day but again this depends on how much sleep she had the night before. 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
[2024-09-12 10:51] VITALS: BMI 27.4
== END 2024-08-17 06:46 | disposition home or self-care (01) ==
LOC: ANHCSM 07:46
PROVIDERS: PCP Family Medicine; Visit Provider Family Medicine
DX: I63.9 Cerebral infarction, unspecified (principal); R00.2 Palpitations; G47.39 Other sleep apnea; G47.33 Obstructive sleep apnea (adult) (pediatric); Z72.821 Inadequate sleep hygiene; I49.1 Atrial premature depolarization
CPT/HCPCS: 95810

== ENCOUNTER 2024-09-05 09:02 | Outpatient (CLI) | payer MEDICARE, SELFPAY ==
[2024-09-05 14:38] LABS: Alanine Aminotransferase 21 U/L (6-35); Albumin Level 3.7 g/dL (3.5-5.1); Alkaline Phosphatase 55 U/L (38-126); Anion Gap 6 mmol/L (4-12); Aspartate Amino Transferase 47 U/L (14-36); Bilirubin,Total 0.9 mg/dL (0.2-1.3); Blood Urea Nitrogen 22 mg/dL (7-17); Calcium 8.8 mg/dL (8.4-10.2); Carbon Dioxide 30 mmol/L (22-30); Chloride 102 mmol/L (98-107); Cholesterol 117 mg/dL (0-200); Estimated Glomerular Filt Rate > 60; Glucose 89 mg/dL (65-110); HDL Direct 63 mg/dL; Potassium 4.6 mmol/L (3.4-5.0); Sodium 138 mmol/L (137-145); Triglycerides 56 mg/dL (<150)
[2024-09-05 14:50] LABS: LDL Cholesterol Direct < 30 mg/dL
== END 2024-09-05 09:03 | disposition home or self-care (01) ==
LOC: ANHGOSHLAB 09:03
PROVIDERS: PCP Family Medicine; Visit Provider Student in an Organized Health Care Education/Training Program
DX: I49.1 Atrial premature depolarization (principal); I63.9 Cerebral infarction, unspecified; R07.89 Other chest pain
CPT/HCPCS: 36415; 80053; 80061

== ENCOUNTER 2024-11-08 09:08 | Emergency (ER) | payer MEDICARE, SELFPAY ==
[2024-11-08 09:20] VITALS: BP 108/69; PULSE 70; RESP 16; TEMP 36.4; O2SAT 99
--- NOTE | 2024-11-08 09:31 | ED_ITS ---
HPI - Female Genitourinary General Chief complaint: Urogenital-Female Stated complaint: UTI SYMPTOMS Time Seen by Provider: 11/08/24 09:32 Source: patient, RN notes reviewed and old records reviewed Mode of arrival: ambulatory Limitations: no limitations History of Present Illness HPI Narrative: 84 year old female who presents to [facility] for rehabilitation care with complaints of UTI symptoms which includes urinary frequency, urgency, burning with urination and suprapubic pressure for the past 4 days. Patient has been taking AZO for her symptoms. Patient reports no vaginal discharge and no vaginal bleeding. Patient reports no known fevers, chills or sweats or any nausea or vomiting or diarrhea. MD elicited complaint: dysuria and UTI Onset (ago): day(s) (4) Location of symptoms: suprapubic and urethra Severity scale (1-10): 3 Quality of pain: burning and aching Vaginal discharge: none Vaginal bleeding: none Treatment prior to arrival: OTC urinary analgesics Related Data Home Medications ?Medication ?Instructions ?Recorded ?Confirmed ?Last Taken ?Type fluticasone propionate 50 1 spray intranasal QPM 12/28/19 09/02/24 Unknown History mcg/actuation nasal spray,suspension lactobacillus combination no.8 3 See Rx Instructions PO DAILY 12/28/19 09/02/24 Unknown History billion cell capsule (Adult Probiotic) multivitamin with minerals-ferrous 4.5 mg PO DAILY 12/28/19 09/02/24 Unknown History sulfate 4.5 mg iron tablet (One Daily Multivitamins with Minerals) psyllium husk 0.52 gram capsule 0.52 gm PO DAILY 12/28/19 09/02/24 Unknown History (Fiber (psyllium husk)) loratadine 10 mg tablet (Claritin) 10 mg PO DAILY 08/14/20 09/02/24 Unknown History azelastine 0.05 % eye drops 1 drp EACH EYE BID 02/27/23 09/02/24 Unknown History aspirin 81 mg tablet,delayed 81 mg PO DAILY 02/22/24 09/02/24 Unknown History release mv-mn-folic 200 mcg-vit K 15 cap PO 02/22/24 09/02/24 Unknown History mcg-lutein 5 mg-zeaxanthin 1 mg capsule (PreserVision AREDS 2 Plus Multivit) flecainide 50 mg tablet 50 mg PO Q8H 06/01/24 09/02/24 Unknown History Allergies Allergy/AdvReac Type Severity Reaction Status Date / Time nitrofurantoin Allergy Unknown unknown Verified 09/02/24 09:05 Sulfa (Sulfonamide Allergy Unknown Hives Verified 11/08/24 09:38 Antibiotics) typhoid-paratyphoid vaccine Allergy Unknown unknown Verified 09/02/24 09:05 ciprofloxacin (From Cipro) AdvReac Intermediate tingling Verified 09/02/24 09:05 throughout body; electrical impulses all over NITROFURANTOIN MACROCRYSTAL Allergy Intermediate Hives Uncoded 11/08/24 09:38 Review of Systems Review of Systems: CONSTITUTIONAL: Denies fever, chills, or sweats. CARDIOVASCULAR: Denies chest pain, palpitations, or edema. RESPIRATORY: Denies cough or dyspnea. GASTROINTESTINAL: reports suprapubic abdominal pain, no nausea, vomiting, or diarrhea. GENITOURINARY: Reports dysuria, frequency, urgency. Denies flank pain or hematuria. SKIN: Denies rash or itching. MUSCULOSKELETAL: Denies back pain or myalgia. 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 Carpal tunnel syndrome Fracture of left patella Arthritis Skin cancer Hearing loss Arthritis of foot, degenerative Acquired pes planovalgus of right foot Cataract (~2015) Kidney cysts (~2007) Colon polyp (~2018) Surgical History Surgical History History of esophagogastroduodenoscopy (EGD) History of carpal tunnel surgery H/O: hysterectomy (~1999) Family History Family History Mother Patient's mother is Family history of dementia Hypertension Cerebrovascular accident, Onset Age: 92 Father Family history of kidney disease, Onset Age: 81 Family history of malignant neoplasm of kidney Patient's father is Family history of Parkinson's disease Sibling Hypertension Other Family history of arthritis Family history of elevated blood lipids Family history of malignant neoplasm Family history of malignant neoplasm of breast in first degree relative Family history of osteoarthritis Social History Social History Smoking status: Never smoker Second hand tobacco smoke exposure: No Alcohol intake: never Substance use: never Substance use type: does not use Lack of Transportation: No Lack of Food: Never True Current Housing: I Have Housing Concerned About Future Housing: No Difficulty Paying Gas/Electric Bills: No Difficulty Paying for Meds: No Currently Unemployed: No Education: Master's Degree or Higher Difficulty w/ Childcare or Family Care: No Living arrangements: with family Occupation/Education: retired Gender identity (if verbalized by the patient): Female Sexual Orientation (if Verbalized by the Patient): Straight or Heterosexual Spiritual care concerns: No Agree to blood products: Yes Comments At time of signature, agree with nursing past medical, surgical, social and family history. There is no relevant family history pertinent to the presenting complaint Exam Narrative: GENERAL: Well-appearing, well-nourished, and in no acute distress. HEAD: Normocephalic, atraumatic. NECK: Supple. no lymphadenopathy CHEST: Clear to auscultation. No respiratory distress.SAO2 99% on room air HEART: Regular rate and rhythm. No murmur heard. Normal peripheral pulses. ABDOMEN: Soft, tender over suprapubic region, nondistended, normal active bowel sounds. No CVA tenderness. Reports frequency urgency and burning with urination EXTREMITIES: Normal range of motion. No edema. SKIN: Warm, dry, no rash. NEURO: No focal deficits. Alert and oriented x3. Course Course Emergency Course: Patient is aware of diagnosis, understands and agrees to treatment plan.? Anticipatory guidance given.? Patient agrees to follow-up as directed and is aware of reasons to seek care at the emergency department. Portions of this record may have been created with voice recognition software Level of Care: Express Care Visit Vital Signs Vital signs: Vital Signs Temperature 36.4 C L 11/08/24 09:20 Pulse Rate 70 11/08/24 09:20 Respiratory Rate 16 11/08/24 09:20 Blood Pressure 108/69 11/08/24 09:20 Pulse Oximetry 99 11/08/24 09:20 Temperature 36.4 C L 11/08/24 09:20 Pulse Rate 70 11/08/24 09:20 Respiratory Rate 16 11/08/24 09:20 Blood Pressure 108/69 11/08/24 09:20 Pulse Oximetry 99 11/08/24 09:20 MDM - Female Genitourinary MDM Narrative Medical decision making narrative: Exam findings and UA show no acute concerns or changes; patient is non-toxic appearing and is in no distress.? Patient is appropriate for outpatient treatment and follow-up. Differential Diagnosis Differential diagnosis: Likely urinary tract infection, cystitis and other (dysuria) Lab Data Attestation: I reviewed the patient's lab results. Lab results narrative: Urine dip: glucose trace, bilirubin negative, ketone negative, specific gravity less than or equal to 1.005, blood 3+, pH 5.5, protein 1+, urobilinogen 1.0, nitrate positive, leukocyte 1+ Patient has taken AZO Labs: Lab Results 11/08/24 Range/Units 09:43 POC Urine Color [place] POC Urine Clarity Clear POC Urine pH 5.5 POC Ur Specif [place] 1.005 POC Urine Protein 1+ (Negative) POC Ur Glucose (UA) Negative (Negative) POC Urine Ketones Negative (Negative) POC Urine Blood 3+ (Negative) POC Urine Nitrite Negative (Negative) POC Urine Bilirubin Negative (Negative) POC Urine Urobilinogen 0.2 POC U Leukocyte Esteras 1+ (Negative) Critical Care Time Critical Care Time Critical Care Time: No Discharge Plan Discharge Clinical Impression: Acute UTI Patient Disposition: Home, Self-Care Condition: Stable Instructions: Antibiotic Form, Urinary Tract Infection in Women (ED) Additional Instructions: Increase fluids especially cranberry juice and water Avoid caffeine and carbonated beverages Antibiotic as directed Medicine as directed--cautioned it will cause your urine to be bright orange Tylenol/ibuprofen for pain or fever Follow-up with her primary care provider if further problems or concerns Recheck if you have fever over 101, nausea and vomiting. If your symptoms persist, change or worsen significantly before you can contact your personal physician then please, without delay, go to the emergency department for further evaluation. Follow-up with PCP in 7-10 days or sooner if needed Patient Language: Japanese Prescriptions: New amoxicillin-pot clavulanate 875-125 mg tablet 1 tablet PO Q12H Qty: 20 0RF Rx Instructions: take all dose of medication and take with food No Action Adult Probiotic 3 billion cell capsule See Rx Instructions PO DAILY Rx Instructions: Probiotic PO daily; administer with a meal One Daily Multi-Vit w-Mineral 4.5 mg iron tablet 4.5 mg PO DAILY psyllium husk [Fiber (psyllium husk)] 0.52 gram capsule 0.52 gm PO DAILY Patient Comments: pt.stated on demographic sheet Psyllium .52g 3-4 daily fluticasone propionate 50 mcg/actuation spray,suspension 1 spray NASAL QPM Patient Comments: As needed Rx Instructions: administer into each nostril loratadine [Claritin] 10 mg tablet 10 mg PO DAILY azelastine 0.05 % drops 1 drp EACH EYE BID aspirin 81 mg tablet,delayed release (DR/EC) 81 mg PO DAILY PreserVision AREDS 2 Plus MV 200 mcg-15 mcg- 5 mg-1 mg capsule PO flecainide 50 mg tablet 50 mg PO Q8H Premarin 0.625 mg/gram cream 0.625 mg VAGINAL WEEKLY Qty: 1 2RF rosuvastatin 5 mg tablet 5 mg PO DAILY Qty: 90 1RF (DME) Resmed Airsense 11 Autopap 5-15cm H2O with humdifier and mask/filter/tubing See Rx Instructions .Route .MEDSUPPLY Qty: 1 0RF Rx Instructions: As directed nightly Follow-up/Referrals: Clari Brink MD [Primary Care Provider] - Time of Disposition: 09:44 Quality Cindy Coma Scale Eyes: Open Verbal: Oriented and Alert Motor: Follows Commands [place] Coma Total Score: 15
[2024-11-08 09:45] LABS: EDUAAPPEAR Clear; EDUABILI Negative (Negative); EDUABLOOD 3+ (Negative); EDUACOLOR1 Orange; EDUAGLUCOSE Negative (Negative); EDUAKETONE Negative (Negative); EDUALEUKO 1+ (Negative); EDUANITRATE Negative (Negative); EDUAPH 5.5; EDUAPROTEIN 1+ (Negative); EDUASPGRAVITY 1.005; EDUAUROBILI 0.2
== END 2024-11-08 09:46 | disposition home or self-care (01) ==
PROVIDERS: Emergency Provider Registered Nurse; PCP Family Medicine
DX: N39.0 Urinary tract infection, site not specified (principal); Z86.73 Personal history of transient ischemic attack (TIA), and cerebral infarction without residual deficits
CPT/HCPCS: 81003; 87086; 99213; G0463

== ENCOUNTER 2024-12-01 12:16 | Emergency (ER) | payer MEDICARE, SELFPAY ==
--- NOTE | 2024-12-01 12:24 | ED_ITS ---
HPI - URI/Sore Throat General Chief Complaint: Upper Respiratory Infection Stated Complaint: Cough,sinus,congestion Time Seen by Provider: 12/01/24 12:24 Source: patient, RN notes reviewed and old records reviewed Mode of arrival: ambulatory Limitations: no limitations History of Present Illness HPI Narrative: patient presents with complaints of 10-14 days of sinus pain and pressure. She reports that she has had some purulent nasal drainage, some associated headache and postnasal drainage. She is unsure if fever status, does report that she is more tired than normal. She has been taking [id number] medications for her symptoms with moderate relief. She does report that postnasal drainage is triggering cough, she denies any wheezing. She denies any shortness of breath. She voices no other concerns or complaints at this time. Related Data Home Medications ?Medication ?Instructions ?Recorded ?Confirmed ?Last Taken ?Type fluticasone propionate 50 1 spray intranasal QPM 12/28/19 12/01/24 Unknown History mcg/actuation nasal spray,suspension lactobacillus combination no.8 3 See Rx Instructions PO DAILY 12/28/19 12/01/24 Unknown History billion cell capsule (Adult Probiotic) multivitamin with minerals-ferrous 4.5 mg PO DAILY 12/28/19 12/01/24 Unknown History sulfate 4.5 mg iron tablet (One Daily Multivitamins with Minerals) psyllium husk 0.52 gram capsule 0.52 gm PO DAILY 12/28/19 09/02/24 Unknown History (Fiber (psyllium husk)) loratadine 10 mg tablet (Claritin) 10 mg PO DAILY 08/14/20 12/01/24 Unknown History azelastine 0.05 % eye drops 1 drp EACH EYE BID 02/27/23 12/01/24 Unknown History aspirin 81 mg tablet,delayed 81 mg PO DAILY 02/22/24 12/01/24 Unknown History release mv-mn-folic 200 mcg-vit K 15 cap PO 02/22/24 09/02/24 Unknown History mcg-lutein 5 mg-zeaxanthin 1 mg capsule (PreserVision AREDS 2 Plus Multivit) flecainide 50 mg tablet 50 mg PO Q8H 06/01/24 12/01/24 Unknown History Allergies Allergy/AdvReac Type Severity Reaction Status Date / Time nitrofurantoin Allergy Unknown unknown Verified 12/01/24 12:53 Sulfa (Sulfonamide Allergy Unknown Hives Verified 12/01/24 12:53 Antibiotics) typhoid-paratyphoid vaccine Allergy Unknown unknown Verified 12/01/24 12:53 ciprofloxacin (From Cipro) AdvReac Intermediate tingling Verified 12/01/24 12:53 throughout body; electrical impulses all over NITROFURANTOIN MACROCRYSTAL Allergy Intermediate Hives Uncoded 12/01/24 12:53 Review of Systems Review of Systems: All systems reviewed & are unremarkable except as noted in HPI and below Constitutional: Constitutional: Reports no additional constitutional complaints, Reports headache(s) and Reports lethargy ENT: Reports system reviewed and no additional complaints, except as documented, Reports as per HPI, Reports nasal congestion, Reports nasal discharge, Reports sinus pain and Reports sore throat Cardiovascular: Cardiovascular: Reports no additional cardiovascular complaints Respiratory: Respiratory: Reports no additional respiratory complaints Gastrointestinal: Gastrointestinal: Reports no additional gastrointestinal complaints PMFSH Past Medical History Medical History CVA (cerebral vascular accident) 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 Carpal tunnel syndrome Fracture of left patella Arthritis Skin cancer Hearing loss Arthritis of foot, degenerative Acquired pes planovalgus of right foot Cataract (~2015) Kidney cysts (~2007) Colon polyp (~2017) Surgical History Surgical History History of esophagogastroduodenoscopy (EGD) History of carpal tunnel surgery H/O: hysterectomy (~1999) Family History Family History Mother Patient's mother is Family history of dementia Hypertension Cerebrovascular accident, Onset Age: 92 Father Family history of kidney disease, Onset Age: 81 Family history of malignant neoplasm of kidney Patient's father is Family history of Parkinson's disease Sibling Hypertension Other Family history of arthritis Family history of elevated blood lipids Family history of malignant neoplasm Family history of malignant neoplasm of breast in first degree relative Family history of osteoarthritis Social History Social History Smoking status: Never smoker Second hand tobacco smoke exposure: No Alcohol intake: never Substance use: never Substance use type: does not use Lack of Transportation: No Lack of Food: Never True Current Housing: I Have Housing Concerned About Future Housing: No Difficulty Paying Gas/Electric Bills: No Difficulty Paying for Meds: No Currently Unemployed: No Education: Master's Degree or Higher Difficulty w/ Childcare or Family Care: No Living arrangements: with family Occupation/Education: retired Gender identity (if verbalized by the patient): Female Sexual Orientation (if Verbalized by the Patient): Straight or Heterosexual Spiritual care concerns: No Agree to blood products: Yes Comments At the time of my signature, I reviewed and agree with the nursing past medical, surgical, social, and family history. There is no relevant family history pertinent to the patient complaint. Exam Const: General: cooperative, no acute distress, alert and awake Orientation/consciousness: oriented to person, oriented to place and oriented to time HENMT: Head: normal to inspection Ears: TM abnormal dull Face and sinus: sinus tenderness Mouth: Yes moist mucous membranes Resp: Effort & Inspection: normal respiratory effort and able to speak in complete sentences Auscultation: clear to auscultation bilaterally, no crackles, no rales, no rhonchi and no wheezes Cardio: Palpation: normal PMI Rate: regular rate Rhythm: regular rhythm Heart sounds: S1 normal heart sound present and S2 normal heart sound present Neuro: General: oriented to person, oriented to place and oriented to time Cranial nerves: Yes CN's II-XII intact bilaterally Psych: Appearance: grossly normal Thought process: Normal thought process present Insight: Good insight present (Psych) Judgement: Good judgement present (Psych) Course Course Level of Care: Express Care Visit Vital Signs Vital signs: Vital Signs Temperature 97.7 F 12/01/24 12:36 Pulse Rate 78 12/01/24 12:36 Respiratory Rate 16 12/01/24 12:36 Blood Pressure 102/76 12/01/24 12:36 Pulse Oximetry 100 12/01/24 12:36 Temperature 97.7 F 12/01/24 12:36 Pulse Rate 78 12/01/24 12:36 Respiratory Rate 16 12/01/24 12:36 Blood Pressure 102/76 12/01/24 12:36 Pulse Oximetry 100 12/01/24 12:36 Reviewed MDM - URI/Sore Throat MDM Narrative Medical decision making narrative: History and exam consistent with sinusitis. Given patient's advanced age, will treat her sinusitis with doxycycline to cover for any possibility possible chest involvement. Patient in no distress, nontoxic appearing. Stable for discharge home. Discharge instructions reviewed with patient, as well as provided in writing per nursing staff. The instructions also include specific and strict return/GO TO THE ER as well as f/u information. All questions have been answered, and the patient deny any further questions with discharge and discharge plan. Some parts of this dictation were generated by voice recognition software and may contain typographical and/or grammatical inaccuracies. Differential Diagnosis Differential diagnosis: Likely upper respiratory infection, sinusitis and viral infection Medical Records Attestation: I reviewed the patient's medical records. Discharge Plan Discharge Clinical Impression: Sinusitis Qualifiers: Sinusitis location: maxillary Chronicity: acute Recurrence: not specified as recurrent Qualified Code(s): J01.00 - Acute maxillary sinusitis, unspecified Patient Disposition: Home, Self-Care Condition: Stable Instructions: Antibiotic Form, Sinusitis (ED) Additional Instructions: take medication as prescribed. Follow with primary care provider. Emergency department for new or worse symptoms Patient Language: Kiswahili Prescriptions: New doxycycline hyclate 100 mg capsule 100 mg PO BID Qty: 20 0RF benzonatate 200 mg capsule 200 mg PO TID PRN (Reason: cough) Qty: 30 0RF No Action Adult Probiotic 3 billion cell capsule See Rx Instructions PO DAILY Rx Instructions: Probiotic PO daily; administer with a meal One Daily Multi-Vit w-Mineral 4.5 mg iron tablet 4.5 mg PO DAILY psyllium husk [Fiber (psyllium husk)] 0.52 gram capsule 0.52 gm PO DAILY Patient Comments: pt.stated on demographic sheet Psyllium .52g 3-4 daily fluticasone propionate 50 mcg/actuation spray,suspension 1 spray NASAL QPM Patient Comments: As needed Rx Instructions: administer into each nostril loratadine [Claritin] 10 mg tablet 10 mg PO DAILY azelastine 0.05 % drops 1 drp EACH EYE BID aspirin 81 mg tablet,delayed release (DR/EC) 81 mg PO DAILY PreserVision AREDS 2 Plus MV 200 mcg-15 mcg- 5 mg-1 mg capsule PO flecainide 50 mg tablet 50 mg PO Q8H Premarin 0.625 mg/gram cream 0.625 mg VAGINAL WEEKLY Qty: 1 2RF rosuvastatin 5 mg tablet 5 mg PO DAILY Qty: 90 1RF (DME) Resmed Airsense 11 Autopap 5-15cm H2O with humdifier and mask/filter/tubing See Rx Instructions .Route .MEDSUPPLY Qty: 1 0RF Rx Instructions: As directed nightly Follow-up/Referrals: Clari Brink MD [Primary Care Provider] - 2 Weeks Time of Disposition: 13:09
[2024-12-01 12:36] VITALS: BP 102/76; PULSE 78; RESP 16; TEMP 36.5; O2SAT 100
== END 2024-12-01 13:10 | disposition home or self-care (01) ==
PROVIDERS: Emergency Provider Nurse Practitioner Family; PCP Family Medicine
DX: J01.00 Acute maxillary sinusitis, unspecified (principal); M19.90 Unspecified osteoarthritis, unspecified site; Z85.828 Personal history of other malignant neoplasm of skin; Z86.73 Personal history of transient ischemic attack (TIA), and cerebral infarction without residual deficits
CPT/HCPCS: 99213; G0463

== ENCOUNTER 2024-12-09 10:28 | Outpatient (CLI) | payer MEDICARE, SELFPAY ==
--- NOTE | ~2024-12-09 | MM_ITS ---
EXAMINATION: MM screening dmitriy BI w mei HISTORY: Screening TECHNIQUE: Craniocaudal and mediolateral oblique 3-D tomosynthesis images were obtained and synthetic 2-D images were generated. CAD analysis was submitted and interpreted. COMPARISON: Comparison to multiple prior studies sequentially, with oldest reviewed study dated 03/02. BREAST PARENCHYMAL COMPOSITION: There are scattered areas of fibroglandular density. FINDINGS: There is no evidence of suspicious mass, calcification, or architectural distortion to sugg est malignancy in either breast. There has been no suspicious interval change. IMPRESSION: 1. No mammographic evidence of malignancy. 2. Recommend routine screening mammography in one year. BI-RADS Category 1: Negative Reviewed, dictated and finalized at location A. 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
== END 2024-12-09 10:29 | disposition home or self-care (01) ==
LOC: MICIMG 10:29
PROVIDERS: PCP Family Medicine; Visit Provider Student in an Organized Health Care Education/Training Program
DX: Z12.31 Encounter for screening mammogram for malignant neoplasm of breast (principal); Z78.0 Asymptomatic menopausal state
CPT/HCPCS: 77063; 77067

== ENCOUNTER 2025-03-16 09:15 | Outpatient (CLI) | payer MEDICARE, SELFPAY ==
[2025-03-16 09:34] LABS: Hematocrit 39.2 % (37.0-47.0); Hemoglobin 12.1 g/dL (12.0-15.0); Mean Corpuscular HGB Conc 30.9 g/dl (32-36); Mean Corpuscular Hemoglobin 28.6 pg (26-34); Mean Corpuscular Volume 92.7 fl (80-100); Mean Platelet Volume 11.4 fl (7.4-10.4); Platelet Count Result 134 k/mm3 (150-375); Red Blood Count 4.23 M/mm3 (4.2-5.4); Red Cell Distribution Width 15.9 % (11.5-14.5); White Blood Count 5.9 K/mm3 (4.5-10.0)
[2025-03-16 09:47] LABS: Alanine Aminotransferase 27 U/L (6-35); Albumin Level 3.9 g/dL (3.5-5.1); Alkaline Phosphatase 55 U/L (38-126); Anion Gap 7 mmol/L (4-12); Aspartate Amino Transferase 30 U/L (14-36); Bilirubin,Total 1.1 mg/dL (0.2-1.3); Blood Urea Nitrogen 21 mg/dL (7-17); Carbon Dioxide 29 mmol/L (22-30); Chloride 105 mmol/L (98-107); Cholesterol 115 mg/dL (0-200); Estimated Glomerular Filt Rate > 60; Glucose 90 mg/dL (65-110); HDL Direct 75 mg/dL; Potassium 4.2 mmol/L (3.4-5.0); Sodium 141 mmol/L (137-145); Triglycerides 50 mg/dL (<150)
--- OUTSIDE RECORDS SUMMARY | 2025-03-16 09:59 | XMS_ITS | Encounter Summary ---
Author Organization Formerly [facility] Address [address] [place] [address] Care Team Providers Care Thermit Welding Machine Operator Name Role Phone Clari Brink MD Primary Care Provider Reason for Referral * Consultation (Routine) - Closed Specialty Diagnoses / Procedures Referred By Andreea t Referred To Contact Orthopedic Surgery Diagnoses Closed avulsion fracture of lateral malleolus of right fibula, initial encounter Araceli Marr NP [address] [address] Phone: tel: fax: [facility] [address] [place] [phone] Phone: tel: fax: Referral ID Status Reason Start Date Expiration Date V isits Requested Visits Authorized [id number] Closed Specialty Services Required 02/13/2025 03/15/2026 1 1 Question Answer Please select the performing region: [facility] [[id number]] Please select the performing department: [facility] [[id number]] # of visits: 1 Encounter Details Date Type Department Care Team (Late st Contact Info) Description 02/13/2025 Results Follow-Up [facility]ient Care at [address] [phone] Araceli Marr, DIAL POLISHER [address] [place], [place] [id number] Closed avulsion fracture of lateral malleolus of right fibula, initial encounter (Primary Dx) Social History Tobacco Use Types Packs/Day Years Used Date Smoking Tobacco: Never Smokeless Tobacco: Never Alcohol Use Standard Drinks/Week Comments No 0 (1 standard drink = 0.6 oz pur e alcohol) [facility] Utilities Answer Date Recorded In the past 12 months has e [employer], gas, oil, or water [employer] threatened to shut off services in your home? No 02/15/2024 Social Connection and Isolat ion Panel [NHANES] Answer Date Recorded In a typical week, how many times do you talk on the phone with family, friends, or neighbors? More than three times a week 02/15/2024 How often do you get togethe r with friends or relatives? More than three times a week 02/15/2024 How often do you attend [facility] or lutheran services? More than 4 times per year 02/15/2024 Do you belong to any clubs o r organizations such as denominational groups, unions, fraternal or athletic groups, or school groups? No 02/15/2024 How often do you attend meet ings of the clubs or organizations you belong to? 1 to 4 times per year 02/15/2024 Are you , , di vorced, , never , or living with a partner? 02/15/2024 AUDIT-C Answer Date Recorded Q1: How often do you have a drink containing alc ohol? Monthly or less 02/18/2023 Q2: How many drinks containi ng alcohol do you have on a typical day when you are drinking? 1 or 2 02/18/2023 Q3: How often do you have si x or more drinks on one occasion? Less than monthly 02/18/2023 Overall Financial Resource Strain (CARDIA) Answe r Date Recorded How hard is it for you to pa y for the very basics like food, housing, medical care, and heating? Not hard at all 02/15/2024 PHQ-2 Answer Date Recorded PHQ-2 Total Score (If total score is 3 or more points, staff should administer the PHQ-9) 0 02/13/2024 Hunger Vital Sign Answer Date Recorded Within the past 12 months, y ou worried that your food would run out before you got the money to buy more. Never true 02/15/20 24 Within the past 12 months, t he food you bought just didn't last and you didn't have money to get more. Never true 02/15/2024 PRAPARE - Transportation Answer Date Re corded In the past 12 months, has l ack of transportation kept you from medical appointments or from getting medications? No 01/22 In the past 12 months, has l ack of transportation kept you from meetings, work, or from getting things needed for daily living? No 02/15/2024 Housing Stability Vital Sign Answer Sanchez e Recorded In the last 12 months, was t here a time when you were not able to pay the mortgage or rent on time? No 02/15/2024 In the last 12 months, how many places have you lived? 1 02/15/2024 In the last 12 months, was t here a time when you did not have a steady place to sleep or slept in a snf (including now)? No 02/15/2024 PHQ-9 Answer Date Recorded PHQ-9 Total Score 0 02/13/2024 Personal Safety Answer Date Recorded Have you ever been in or are you currently in a harmful physical or emotional relationship or is someone making you feel afraid or unsafe? Denies 02/12/2024 Comments No Sex and Gender Information Value Date Recorded Sex Assigned at Not on file Legal Sex Female 2:14 AM [employer]OD AND [employer] WORK[employer] Gender Identity Female 12/30/2023 8:57 AM [employer]CTORY WORK[employer] Sexual Orientation Not on file documented as of this encounter Plan of Treatment Scheduled Referrals Name Type Priority Associated Diagnoses Order Schedule Ambulatory referral to Orthopedic Surgery Outpatient Referral Routine Closed avulsion fracture of lateral malleolus of right fibula, initial encounter Expected: 02/27/2025 (Approximate), Expires: 02/13/2026 documented as of this encounter Visit Diagnoses Diagnosis Closed avulsion fracture of lateral malleolus of right fibula, initial encounter- Primary documented in this encounter Additional Health Concerns Infection Onset Date Last Indicated Resolved Time MDR gram neg/ESBL Comment:E.coli ESBL urine 01/18/16, 2/01/22/2016 01/22/2016 documented as of this encounter Care Teams Thermit Welding Machine Operator Relationship Specialty Start Date End Date Clari Brink MD PCP - General Family Medicine 08/16/18 documented as of this encounter
--- OUTSIDE RECORDS SUMMARY | 2025-03-16 09:59 | XMS_ITS | Clinical Summary ---
Author Organization [facility] Medical [facility] Address [address] [place] [address] Care Team Providers Care Police Pilot Name Role Phone Clari Brink MD Primary Care Provider [phone] Allergies Active Allergy Reactions Criticality Noted Date Comments Ciprofloxacin-Dexamethasone Muscle pain Medium 019 Tendon pain Nitrofurantoin Chills Low 12/27/2007 Sulfa (Sulfonamide Antibiotics) Rash Medium Typhoid Vaccine Rash Medium 09/19/2021 Medications psyllium 3.4 gram/5.8 gram powder 0.52 gm 3x qd 8 Active estrogens, conjugated, (PREMARIN) vaginal cream Insert into the vagina daily Active kn-weyhksc-sax-ir on fm-FA-vitK 18 mg iron-600 mcg-80 mcg tablet Take by mouth Active fluticasone (FLONASE) 50 mcg/actuation nasal spray Administer 1 spray into each nostril daily Active loratadine 10 mg capsule Take by mouth Active azelastine (OPTIVAR) 0.05 % ophthalmic solution 1 drop 2 (two) times a day 3 Active aspirin 81 mg enteric coated tabletIndications :prevention of thrombosis Take 1 tablet (81 mg total) by mouth daily 30 tablet 1 4 Active rosuvastatin (CRESTOR) 5 mg tablet 4 Active flecainide (TAMBOCOR) 50 mg tabletIndications :Premature atrial contractions Take 1 tablet (50 mg total) by mouth 2 (two) times a day 60 tablet 11 4 05/23/20 Active artificial tears,hypromellos e, 0.3 % drops Administer into affected eye(s) Active Active Problems Problem Noted Date Diagnosed Date Disorder of mitral valve 10/14/2024 Overview (10/14/2024): CYNTHIA seen on echo 01/2024 Postural dizziness with presyncope 07/18/2024 Premature atrial contractions 05/23/2024 Dyslipidemia 05/23/2024 History of CVA (cerebrovascular accident) 2023 Altered mental status 02/14/2024 Cerebrovascular accident (CVA) 02/14/2024 TIA (transient ischemic attack) 02/13/2024 Right wrist pain 03/25/2022 Carpal tunnel syndrome of right wrist 02/11/2022 Colon cancer screening 12/04/2017 Adenomatous polyp of colon 04/18/2016 Urinary tract infection 01/18/2016 Overview (02/26/2017): UTI (urinary tract infection) Neuropathy 10/11/2015 Low back pain 12/15/2014 Tinnitus 09/13/2014 Sensorineural hearing loss (SNHL) of both ears 1 Idiopathic peripheral neuropathy 02/27/2012 Encounters Date Type Department Care Team Description 02/24/2025 1:35 PM CDT Ancillary Procedure [facility] Imaging at [address] [phone] Other closed fracture of distal end of right fibula, initial encounter 02/24/2025 1:00 PM CDT Office Visit [facility] Medicine and Primary Care at [address] [place] [address] Stewart Frausto DO Other closed fracture of distal end of right fibula, initial encounter (Primary Dx) 02/14/2025 12:00 PM CDT Clinical Support [facility] Care at [address] [phone] 02/14/2025 Telephone [facility] Orthopedics [facility] Sports Medicine [address] [facility] [address] [place] [phone] Timoteo AlejandraLIVIA 02/13/2025 4:15 PM CDT Ancillary Procedure [facility] Imaging at [address] [phone] Acute right ankle pain 02/13/2025 4:00 PM CDT Office Visit [facility] Convenient Care at [address] [phone] Araceli Marr NP Acute right ankle pain (Primary Dx); Avulsion fracture of lateral malleolus of right fibula, closed, initial encounter 02/13/2025 Results Follow-Up [facility] at [address] [phone] Araceli Marr NP Closed avulsion fracture of lateral malleolus of right fibula, initial encounter (Primary Dx) from Last 3 Months Surgical History Surgery Date Site/Laterality Comments HYSTERECTOMY RENAL CYST EXCISION 11/23/2007 - 11/22/2008 Right decortication CATARACT EXTRACTION, BILATERAL Medical History Medical History Date Comments Acquired scoliosis Peripheral neuropathy Hx of adenomatous colonic polyps Osteoarthritis GERD (gastroesophageal reflux disease) TIA (transient ischemic attack) Family History Medical History Relation Name Comments Dementia Mother Dementia; Heart disease Mother Hypertension Mother Hypertension; Stroke Mother Stroke; Relation Name Status Comments Father Mother Social History Tobacco Use Types Packs/Day Years Used Date Smoking Tobacco: Never Smokeless Tobacco: Never Tobacco Cessation:Counseling Given: Not Answered Alcohol Use Standard Drinks/Week Comments No 0 (1 standard drink = 0.6 oz pur e alcohol) [facility] Utilities Answer Date Recorded In the past 12 months has [employer], [employer], oil, or water [employer] threatened to shut off services in your [...] week 02/15/2024 How often do you attend [facility] health system or pentecostalism services? More than 4 times per year 02/15/2024 Do you belong to any clubs o r organizations such as yazidism groups, unions, fraternal or athletic groups, or [...] place to sleep or slept in a assisted (including now)? 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 Gender Identity Female 12/30/2023 8:57 AM FINISHING TRIMMER Sexual Orientation Not on file Obstetrics History Last Filed Vital Signs Vital Sign Reading Time Taken Comments Blood Pressure 108/65 02/24/2025 1:02 PM CDT Pulse 65 02/24/2025 1:02 PM CDT Temperature 36.1 C (96.9 F) 02/13/2025 4:00 PM CDT Respiratory Rate 20 02/13/2025 4:00 PM CDT Oxygen Saturation 99% 02/13/2025 4:00 PM CDT Inhaled Oxygen Concentration - - Weight 71.7 kg (158 lb) 02/24/2025 1:02 PM CDT Height 172.7 cm (5' 8 ) 02/24/2025 1:02 PM CDT Body Mass Index 24.02 02/24/2025 1:02 PM CDT Plan of Treatment Health Maintenance Due Date Last Done Comments Well Visit 65+ 2003 DTaP/Tdap/Td Vaccine (1 - Tdap) 08/26/2007 08/25/2007, 04/25/1992, 04/17/1971 Zoster Vaccine (2 of 3) 02/14/2019 12/20/19 19, 08/04/2018, 12/09/2007 Pneumococcal vaccine 65+ (2 of 2 - PCV) 08/10/2021 08/10/2020, 09/04/1998 Covid-19 Vaccine (3 - season) 07/24/202402/2021, 12/27/2020 Depression Screening 02/11/2025 02/12/2024, 02/12/20 24 Fall Risk Assessment 02/14/2025 02/15/2024 Influenza Vaccine (Season Ended) 2025 09/13/20 19, 08/15/2018 Hepatitis B Screening Completed 01/20/1994 , 08/19/1993, 07/22/1993 Procedures Procedure Name Priority Date/Time Associated Diagnosis Comments XR ANKLE RIGHT 3 OR MORE VIEWS Schedule Routine, Read Routine (OP Routine) 02/24/2025 1:37 PM CDT Other closed fracture of distal end of right fibula, initial encounter XR ANKLE RIGHT 3 OR MORE VIEWS Schedule ASHLEY, Read ASHLEY (Appt Today, Awaiting Results) 02/13/2025 4:19 PM CDT Acute right ankle pain from Last 3 Months Results * XR Ankle Right 3 or More Views (02/24/2025 1:37 PM CDT) Anatomical Region Laterality Modality Lower Extremities, Ankle Right Digital Radiography 02/24/2025 5:11 PM CDT Narrative 02/24/2025 5:13 PM CDT EXAM DESCRIPTION: XR ANKLE RIGHT 3 OR MORE VIEWS REASON FOR STUDY: Fracture, ankle Follow up distal end of right fibular fracture from 02.13.25 TECHNIQUE: 3 radiographic view(s) of the right ankle . COMPARISON: 02/13/2025 FINDINGS: BONES/JOINTS: Again noted is a small sliver of bone adjacent to the lateral malleolus suggesting an avulsion fracture. Bridging calcified callus is not well seen. The joint spaces are normal. SOFT TISSUES: There is soft tissue swelling over the lateral malleolus. There is an ankle joint effusion. IMPRESSION: 1. Evidence of a small avulsion fracture from the lateral malleolus again noted with associated soft tissue swelling. THIS IS AN ELECTRONICALLY VERIFIED FINAL REPORT 02/24/2025 5:13 PM - Electronically signed by Feliciano Mann M.D. BS T: Report ID: [id number] Reading Location: [id number] Procedure Note Feliciano Mann MD - 02/24/2025 EXAM DESCRIPTION: XR ANKLE RIGHT 3 OR MORE VIEWS REASON FOR STUDY: Fracture, ankle Follow up distal end of right fibular fracture from 02.13.25 TECHNIQUE: 3 radiographic view(s) of the right ankle . COMPARISON: 02/13/2025 FINDINGS: BONES/JOINTS: Again noted is a small sliver of bone adjacent tothe lateral malleolus suggesting an avulsion fracture. Bridging calcifiedcallus is not well seen. The joint spaces are normal. SOFT TISSUES: There is soft tissue swelling over the lateral malleolus.There is an ankle joint effusion. IMPRESSION: 1. Evidence of a small avulsion fracture from the lateral malleolus again noted with associated soft tissue swelling. THIS IS AN ELECTRONICALLY VERIFIED FINAL REPORT 02/24/2025 5:13 PM - Electronically signed by Feliciano Mann M.D. BS T: Report ID: [id number] Reading Location: [id number] Stewart Frausto DO IMG XR PROCEDURES Mary Lou l Result * XR Ankle Right 3 or More Views (02/13/2025 4:19 PM CDT) Anatomical Region Laterality Modality Lower Extremities, Ankle Right Digital Radiography 02/13/2025 7:54 PM CDT Narrative 02/13/2025 7:55 PM CDT EXAM DESCRIPTION: XR ANKLE RIGHT 3 OR MORE VIEWS REASON FOR STUDY: Ankle pain, no prior imaging, right lateral ankle swelling and pain x 10 days. Occurred when helping her after fall. Pt complains of lateral ankle pain for about ten days. No known injury. No prior surgery to the ankle. TECHNIQUE: 3 radiographic view(s) of the right ankle . COMPARISON: None FINDINGS: BONES/JOINTS: There is a tiny curvilinear bone fragment adjacent to the lateral malleolus which may represent a small avulsion fracture. SOFT TISSUES: There is an ankle joint effusion. IMPRESSION: 1. Possible small avulsion fracture from the lateral malleolus. 2. Ankle joint effusion. THIS IS AN ELECTRONICALLY VERIFIED FINAL REPORT 02/13/2025 7:55 PM - Electronically signed by Feliciano Mann M.D. BS T: Report ID: [id number] Reading Location: [id number] Procedure Note Feliciano Mann MD - 02/13/2025 EXAM DESCRIPTION: XR ANKLE RIGHT 3 OR MORE VIEWS REASON FOR STUDY: Ankle pain, no prior imaging, right lateral ankleswelling and pain x 10 days. Occurred when helping her after fall. Pt complains of lateral ankle pain for about ten days. No known injury. No prior surgery to the ankle. TECHNIQUE: 3 radiographic view(s) of the right ankle . COMPARISON: None FINDINGS: BONES/JOINTS: There is a tiny curvilinear bone fragment adjacentto the lateral malleolus which may represent a small avulsion fracture. SOFT TISSUES: There is an ankle joint effusion. IMPRESSION: 1. Possible small avulsion fracture from the lateralmalleolus. 2. Ankle joint effusion. THIS IS AN ELECTRONICALLY VERIFIED FINAL REPORT 02/13/2025 7:55 PM - Electronically signed by Feliciano Mann M.D. BS T: Report ID: [id number] Reading Location: [place] [address] Araceli Marr NP IMG XR PROCEDURES Final Re sult from Last 3 Months Additional Health Concerns Infection Onset Date Last Indicated MDR gram neg/ESBL Comment:E.coli ESBL urine 01/18/16, 01/21/16 01/22/2016 01/22/2016 Insurance [employer] MEDICARE [facility] MEDICARE [facility] MEDIC[facility] Advance Directives For more information, please contact: [phone] * Full Code (Latest Code Status on File) Date Activated Date Inactivated Comments 02/13/2024 4:51 AM 02/15/2024 9:21 PM * Full Code Date Activated Date Inactivated Comments 02/18/2023 11:00 AM 02/18/2023 4:39 PM * Full Code Date Activated Date Inactivated Comments 02/19/2021 8:07 AM 02/19/2021 2:26 PM Care Teams Police Pilot Relationship Specialty Start Date End Date Clari Brink MD PCP - General Family Medicine 08/16/18
--- OUTSIDE RECORDS SUMMARY | 2025-03-16 09:59 | XMS_ITS | Referral Summary ---
Author Organization [facility] Medical [facility] 2 Address [address] [facility] [place] [address] Care Team Providers Care Patient Intake Coordinator Name Role Phone Clari Brink MD Primary Care Provider [phone] Encounters Date Type Department Care Team Description 02/24/2025 1:35 PM CDT Ancillary Procedure [facility] Imaging at [address] [phone] Other closed fracture of distal end of right fibula, initial encounter 02/24/2025 1:00 PM CDT Office Visit [facility] Sports Medicine and Primary Care at [address] [phone] Stewart Frausto DO Other closed fracture of distal end of right fibula, initial encounter (Primary Dx) 02/14/2025 Telephone [facility] Orthopedics and Sports Medicine [address] [place] [address] [place] [phone] Alejandra Mahmood MA 02/14/2025 12:00 PM CDT Clinical Support [facility] Con[facility]ient Care at [address] [phone] 02/13/2025 Results Follow-Up [facility] at [address] [phone] Araceli Marr, PONY EDGER Closed avulsion fracture of lateral malleolus of right fibula, initial encounter (Primary Dx) 02/13/2025 4:15 PM CDT Ancillary Procedure [facility] Imaging at [address] [phone] Acute right ankle pain 02/13/2025 4:00 PM CDT Office Visit [facility] Convenient Care at [address] [phone] Araceli Marr, GLORIA Acute right ankle pain (Primary Dx); Avulsion fracture of lateral malleolus of right fibula, closed, initial encounter from Last 3 Months Allergies Active Allergy Reactions Criticality Noted Date Comments Ciprofloxacin-Dexamethasone Muscle pain Medium 019 Tendon pain Nitrofurantoin Chills Low 12/27/2007 Sulfa (Sulfonamide Antibiotics) Rash Medium Typhoid Vaccine Rash Medium 09/19/2021 Medications psyllium 3.4 gram/5.8 gram powder 0.52 gm 3x qd 8 Active estrogens, conjugated, (PREMARIN) vaginal cream Insert into the vagina daily Active fk-xgeqhue-wlf-ir on fm-FA-vitK 18 mg iron-600 mcg-80 mcg [...] a day 60 tablet 11 4 05/23/20 25 Active artificial tears,hypromellos e, 0.3 % drops [...] both ears 1 Idiopathic peripheral neuropathy 02/27/2012 Social History Tobacco Use Types Packs/Day Years Used Date Smoking Tobacco: Never Smokeless Tobacco: Never Tobacco Cessation:Counseling Given: Not Answered Alcohol Use Standard Drinks/Week Comments No 0 (1 standard drink = 0.6 oz pur e alcohol) [facility] Utilities Answer Date Recorded In the past 12 months has [employer], gas, oil, or water company threatened to shut off services in your [...] week 02/15/2024 How often do you attend chur ch or shinto services? More than 4 times per year 02/15/2024 Do you belong to any clubs o r organizations such as buddhism groups, unions, fraternal or athletic groups, or [...] place to sleep or slept in a senior care (including now)? 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 BS T: Report ID: [id number] Reading Location: [id number] Procedure Note Feliciano Mann MD - 02/24/2025 [...] Feliciano Mann M.D. BS T: Report ID: [id number] Reading Location: [id number] Stewart Frausto DO IMG XR PROCEDURES Mary [...] Feliciano Mann M.D. BS T: Report ID: [id number] Reading Location: [id number] Procedure Note Feliciano Mann MD - 02/13/2025 [...] Feliciano Mann M.D. BS T: Report ID: [id number] Reading Location: [id number] Araceli Marr NP IMG XR PROCEDURES Final Re sult from Last 3 Months Additional Health Concerns Infection Onset Date Last Indicated MDR gram neg/ESBL Comment:E.coli ESBL urine 01/18/16, 01/21/16 01/22/2016 01/22/2016 Insurance [facility] Advance Directives For more information, please contact: [phone] * Full Code (Latest Code Status on File) Date Activated Date Inactivated Comments 02/13/2024 4:51 AM 02/15/2024 9:21 PM * Full Code Date Activated Date Inactivated Comments 02/18/2023 11:00 AM 02/18/2023 4:39 PM * Full Code Date Activated Date Inactivated Comments 02/19/2021 8:07 AM 02/19/2021 2:26 PM Care Teams Patient Intake Coordinator Relationship Specialty Start Date End Date Clari Brink MD PCP - General Family Medicine 08/16/18
[2025-03-16 10:04] LABS: Vitamin D 25 Hydroxy 49.6 ng/mL
[2025-03-16 10:12] LABS: LDL Cholesterol Direct < 30 mg/dL
== END 2025-03-16 09:16 | disposition home or self-care (01) ==
LOC: ANHLAB 09:16
PROVIDERS: PCP Family Medicine; Visit Provider Family Medicine
DX: E78.2 Mixed hyperlipidemia (principal); R53.83 Other fatigue; E55.9 Vitamin D deficiency, unspecified
CPT/HCPCS: 36415; 80053; 80061; 82306; 84443; 85027; 85055

== ENCOUNTER 2025-04-10 12:56 | Outpatient (CLI) | payer MEDICARE, SELFPAY ==
--- NOTE | ~2025-04-10 | DEXA_ITS ---
Bone Density Report Name: JENIFFER MCCAULEY Age: 85 Sex: Female Ethnicity: White Date of : 1940 Indication: postmenopausal; screening for osteoporosis; parental hip fracture; height loss; prior fracture; hysterectomy; Referring Provider: TRI VALENZUELA Study: Bone densitometry was performed. Exam Date: April 10, 2025 Accession number: [id number] Bone Density: Region BMD T-score Z-score Classification AP Spine(L1-L4) 1.061 0.1 3.0 Normal Femoral Neck (Left) 0.758 -0.8 1.7 Normal Total Hip (Left) 1.009 0.5 2.9 Normal Femoral Neck (Right) 0.803 -0.4 2.1 Normal Total Hip (Right) 0.954 0.1 2.4 Normal Total Hip Mean 0.981 0.3 2.7 Normal World Health Organization criteria for BMD impression classify patients as: Normal (T-score at or above -1.0), Osteopenia (T-score between -1.0 and -2.5), or Osteoporosis (T-score at or below -2.5). 10-year Fracture Risk: FRAX not reported because: All T-scores for Spine Total, Hip Total, Femoral Neck at or above -1.0 Previous Exams: Region Exam Age BMD T-score BMD Change BMD Change Date g/cm2 vs Baseline vs Previous AP Spine (L1-L4) 04/10/2025 85 1.061 0.1 -0.075 (-6.6%) -0.054 (-4.9%) 03/10/2016 75 1.116 0.6 -0.021 (-1.8%) -0.021 (-1.8%) 01/27/2012 71 1.137 0.8 Total Hip(Left) 04/10/2025 85 1.009 0.5 -0.009 (-0.9%) 0.009 (0.9%) 03/10/2016 75 1.000 0.5 -0.018 (-1.8%) -0.018 (-1.8%) 01/27/2012 71 1.018 0.6 Total Hip(Right) 04/10/2025 85 0.954 0.1 -0.031 (-3.1%) -0.013 (-1.3%) 03/10/2016 75 0.966 0.2 -0.018 (-1.8%) -0.018 (-1.8%) 01/27/2012 71 0.984 0.3 *Denotes significance at 95% confidence level, LSC for AP Spine = 0.022 g/cm2, LSC for Total Hip = 0.027 g/cm2 # Denotes dissimilar scan types or analysis methods Clinical Information Provided by Patient: Has had a low trauma fracture Parent has had a hip fracture Has the following medical conditions: Hysterectomy Patient maximum height was 64.0 Menopause Age: 50 No regular weight bearing exercise Drinks caffeinated beverages Onset of menses at age 10 Number of children 3 Impression: The patient has normal bone mass. The patient has risk factors, including: parental hip fracture, previous fracture. The BMD for the AP Spine (L1-L4) decreased, changing by -4.9% since the last DXA exam. Discussion: BONE DENSITY IS ABOVE THE MINIMUM DESIRABLE LEVEL AT ALL SKELETAL SITES TESTED. This patient’s bone mineral density is above the minimum desirable level (T-score -1.0 or better) at all sites measured. The patient should follow a healthful lifestyle (good nutrition with adequate calcium and vitamin D, and appropriate weight-bearing exercise). Follow-Up: Consider repeating this study in 3 to 4 years to reassess this patient's status, or sooner if there is some new clinical indication. Reported by: SCOTTY on 04/10/2025 1:35:00 PM. Reviewed, dictated and finalized at location A.
--- OUTSIDE RECORDS SUMMARY | 2025-04-10 13:01 | XMS_ITS | Referral Summary ---
Author Organization [facility] Medical [facility] [place] 2] 2 Address [address] [facility] [place] [address] Care Team Providers Care Paint Line Operator Name Role Phone Clari Brink MD Primary Care Provider [phone] Encounters Date Type Department Care Team Description 03/20/2025 9:35 AM CDT Ancillary Procedure [facility] Medical Group Imaging at [address] [phone] Other closed fracture of distal end of right fibula, initial encounter 03/20/2025 9:30 AM CDT Office Visit [facility] Medical [facility] Sports Medicine and Primary Care at [address] [phone] Stewart Frausto DO Other closed fracture of distal end of right fibula with routine healing, subsequent encounter (Primary Dx) 02/24/2025 1:35 PM CDT Ancillary Procedure [facility] Medical Group Imaging at [address] [phone] Other closed fracture of distal end of right fibula, initial encounter 02/24/2025 1:00 PM CDT Office Visit [facility] Sports Medicine and Primary Care at [address] [phone] Stewart Frausto DO Other closed fracture of distal end of right fibula, initial encounter (Primary Dx) 02/14/2025 Telephone [facility] Orthopedics and Sports Medicine [address] [facility] [address] [place] [address] Alejandra Mahmood MA 02/14/2025 12:00 PM CDT Clinical Support [facility] at [address] [phone] 02/13/2025 Results Follow-Up [facility] at [address] [phone] Araceli Marr NP XR Ankle Right 3 or More Views 02/13/2025 4:15 PM CDT Ancillary Procedure [facility] Imaging at [address] [phone] Acute right ankle pain 02/13/2025 4:00 PM CDT Office Visit [facility] at [address] [phone] Araceli Marr NP Acute right [...] cream Insert into the vagina daily Active os-krpvkwg-uyz-ir on fm-FA-vitK 18 mg iron-600 mcg-80 mcg [...] drink = 0.6 oz pur e alcohol) [facility] Utilities Answer Date Recorded In the past 12 months has [employer] electric, gas, oil, or water company threatened [...] often do you attend chur ch or zoroastrianism services? More than 4 times per year 02/15/2024 Do you belong to any clubs o r organizations such as moravian groups, unions, fraternal or athletic groups, or [...] No 02/15/2024 Housing Stability Vital Sign Answer Sanchze e Recorded In the last 12 months, [...] place to sleep or slept in a fpc (including now)? No 02/15/2024 PHQ-9 Answer Date [...] on file Legal Sex Female 2:14 AM DATA STEWARD Gender Identity Female 12/30/2023 8:57 AM DATA STEWARD Sexual Orientation Not on file Last Filed Vital Signs Vital Sign Reading Time Taken Comments Blood Pressure 135/78 03/20/2025 9:40 AM CDT Pulse 67 03/20/2025 9:40 AM CDT Temperature 36.1 C (96.9 F) 02/13/2025 4:00 PM CDT Respiratory Rate 16 03/20/2025 9:40 AM CDT Oxygen Saturation 99% 02/13/2025 4:00 PM CDT Inhaled Oxygen Concentration - - Weight 70.3 kg (155 lb) 03/20/2025 9:40 AM CDT Height 157.5 cm (5' 2 ) 03/20/2025 9:40 AM CDT Body Mass Index 28.35 03/20/2025 9:40 AM CDT Plan of Treatment Not on file Procedures Procedure Name Priority Date/Time Associated Diagnosis Comments XR ANKLE RIGHT 3 OR MORE VIEWS Schedule Routine, Read Routine (OP Routine) 03/20/2025 9:35 AM CDT Other closed fracture of distal end [...] XR Ankle Right 3 or More Views (03/20/2025 9:35 AM CDT) Anatomical Region Laterality Modality Lower Extremities, Ankle Right Digital Radiography 03/20/2025 6:54 PM CDT Narrative 03/20/2025 6:56 PM CDT EXAM DESCRIPTION: XR ANKLE RIGHT 3 OR MORE VIEWS REASON FOR STUDY: pain Follow up right fibula fracture from 02.13.25 TECHNIQUE: 3 radiographic view(s) of the right ankle . COMPARISON: [id number] FINDINGS: BONES/JOINTS: No new fracture. Lateral soft tissue swelling has improved. Small avulsion fragment of the tip of the lateral malleolus stable. SOFT TISSUES: Lateral soft tissue swelling has improved. IMPRESSION: No acute osseous abnormality. THIS IS AN ELECTRONICALLY VERIFIED FINAL REPORT 03/20/2025 6:56 PM - Electronically signed by Angel Atkinson M.D. RW T: Report ID: [id number] Reading Location: [id number] Procedure Note Angel Atkinson MD - 03/20/2025 EXAM DESCRIPTION: XR ANKLE RIGHT 3 OR MORE VIEWS REASON FOR STUDY: pain Follow up right fibula fracture from 02.13.25 TECHNIQUE: 3 radiographic view(s) of the right ankle . COMPARISON: [id number] FINDINGS: BONES/JOINTS: No new fracture. Lateral soft tissue swelling has improved. Small avulsion fragment of the tip of the lateral malleolusstable. SOFT TISSUES: Lateral soft tissue swelling has improved. IMPRESSION: No acute osseous abnormality. THIS IS AN ELECTRONICALLY VERIFIED FINAL REPORT 03/20/2025 6:56 PM - Electronically signed by Angel Atkinson M.D. RW T: Report ID: [id number] Reading Location: [id number] Stewart Frausto DO IMG XR PROCEDURES Mary [...] Feliciano Mann M.D. BS T: Report ID: [id number] Reading Location: [id number] Procedure Note Feliciano Mann MD - 02/24/2025 [...] Feliciano Mann M.D. BS T: Report ID: [id number] Reading Location: [id number] Stewart Frausto DO IMG XR PROCEDURES Mary [...] Feliciano Mann M.D. BS T: Report ID: [id number] Reading Location: [id number] Procedure Note Feliciano Mann MD - 02/13/2025 [...] Feliciano Mann M.D. BS T: Report ID: [id number] Reading Location: [place] [address] Araceli Marr LAYER OUT IMG XR PROCEDURES Final Re sult from Last 3 Months Additional Health Concerns Infection Onset Date Last Indicated MDR gram neg/ESBL Comment:E.coli ESBL urine 01/18/16, 01/21/16 01/22/2016 01/22/2016 Insurance AETNA MEDICARE AETNA MEDICARE AET MEDICARE Advance Directives For more information, please contact: [phone] * Full Code (Latest Code Status on File) Date Activated Date Inactivated Comments 02/13/2024 4:51 AM 02/15/2024 9:21 PM * Full Code Date Activated Date Inactivated Comments 02/18/2023 11:00 AM 02/18/2023 4:39 PM * Full Code Date Activated Date Inactivated Comments 02/19/2021 8:07 AM 02/19/2021 2:26 PM Care Teams Paint Line Operator Relationship Specialty Start Date End Date Clari Brink MD PCP - General Family Medicine 08/16/18
--- OUTSIDE RECORDS SUMMARY | 2025-04-10 13:01 | XMS_ITS | Clinical Summary ---
Author Organization [facility] Medical [facility] 2 Address [address] [facility] [place] [address] Care Team Providers Care Clean Room Technician Name Role Phone Clari Brink MD Primary Care Provider [phone] Allergies Active Allergy Reactions Criticality Noted Date Comments Ciprofloxacin-Dexamethasone Muscle pain Medium 019 Tendon pain Nitrofurantoin Chills Low 12/27/2007 Sulfa (Sulfonamide Antibiotics) Rash Medium Typhoid Vaccine Rash Medium 09/19/2021 Medications psyllium 3.4 gram/5.8 gram powder 0.52 gm 3x qd 8 Active estrogens, conjugated, (PREMARIN) vaginal cream Insert into the vagina daily Active bk-sasrgyg-nbm-ir on fm-FA-vitK 18 mg iron-600 mcg-80 mcg [...] Description 03/20/2025 9:35 AM CDT Ancillary Procedure [facility] Medical Group Imaging at [address] [phone] Other closed fracture of distal end of right fibula, initial encounter 03/20/2025 9:30 AM CDT Office Visit [facility] Group Sports Medicine and Primary Care at [address] [place] [address] Stewart Frausto, Other closed fracture of distal end of right fibula with routine healing, subsequent encounter (Primary Dx) 02/24/2025 1:35 PM CDT Ancillary Procedure [facility] Group Imaging at [address] [phone] Other closed fracture of distal end of right fibula, initial encounter 02/24/2025 1:00 PM CDT Office Visit [facility] Sports Medicine and Primary Care at [address] [place] [phone] Stewart Frausto DO Other closed fracture of distal end of right fibula, initial encounter (Primary Dx) 02/14/2025 12:00 PM CDT Clinical Support [facility] Con[facility]ient Care at [address] [phone] 02/14/2025 Telephone [facility] Orthopedics and Sports Medicine [address] [facility] [address] [place] [address] Alejandra Mahmood MA 02/13/2025 4:15 PM CDT Ancillary Procedure [facility] Imaging at [address] [phone] Acute right ankle pain 02/13/2025 4:00 PM CDT Office Visit [facility]ient Care at [address] [phone] Araceli Marr NP Acute right ankle pain (Primary Dx); Avulsion fracture of lateral malleolus of right fibula, closed, initial encounter 02/13/2025 Results Follow-Up [facility] Care at [address] [phone] Araceli Marr NP XR Ankle Right 3 or More Views from Last 3 Months Surgical History Surgery [...] drink = 0.6 oz pur e alcohol) [facility] Utilities Answer Date Recorded In the past 12 months has e electric, gas, oil, or water company threatened [...] often do you attend chur ch or presybeterian services? More than 4 times per year 02/15/2024 Do you belong to any clubs o r organizations such as christianity groups, unions, fraternal or athletic groups, or [...] place to sleep or slept in a intermediate (including now)? No 02/15/2024 PHQ-9 Answer Date [...] on file Legal Sex Female 2:14 AM HUMAN RESOURCE STATISTICIAN Gender Identity Female 12/30/2023 8:57 AM HUMAN RESOURCE STATISTICIAN Sexual Orientation Not on file Obstetrics History [...] 03/20/2025 9:40 AM CDT Plan of Treatment Health Maintenance Due Date Last Done Comments Well Visit 65+ 2003 DTaP/Tdap/Td Vaccine (1 - Tdap) 08/26/2007 08/25/2007, 04/25/1992, 04/17/1971 Zoster Vaccine (2 of 3) 02/14/2019 12/20/19 19, 08/04/2018, 12/09/2007 Pneumococcal vaccine 65+ (2 of 2 - PCV) 08/10/2021 08/10/2020, 09/04/1998 Covid-19 Vaccine ( season) 07/24/202402/2021, 12/27/2020 Depression Screening 02/11/2025 02/12/2024, 02/12/20 Fall Risk Assessment 02/14/2025 02/15/2024 Influenza Vaccine (Season Ended) 2025 09/13/20, 08/15/2018 Hepatitis B Screening Completed 01/20/1994 , [...] view(s) of the right ankle . COMPARISON: [id number] FINDINGS: BONES/JOINTS: No new fracture. Lateral soft tissue swelling has improved. Small avulsion fragment of the tip of the lateral malleolus stable. SOFT TISSUES: Lateral soft tissue swelling has improved. IMPRESSION: No acute osseous abnormality. THIS IS AN ELECTRONICALLY VERIFIED FINAL REPORT 03/20/2025 6:56 PM - Electronically signed by Angel LEDEZMA T: Report ID: [id number] Reading Location: [id number] Procedure Note Angel Atkinson MD - 03/20/2025 EXAM DESCRIPTION: XR ANKLE RIGHT 3 OR MORE VIEWS REASON FOR STUDY: pain Follow up right fibula fracture from 02.13.25 TECHNIQUE: 3 radiographic view(s) of the right ankle . COMPARISON: [id number] FINDINGS: BONES/JOINTS: No new fracture. Lateral soft tissue swelling has improved. Small avulsion fragment of the tip of the lateral malleolusstable. SOFT TISSUES: Lateral soft tissue swelling has improved. IMPRESSION: No acute osseous abnormality. THIS IS AN ELECTRONICALLY VERIFIED FINAL REPORT 03/20/2025 6:56 PM - Electronically signed by Angel LEDEZMA T: Report ID: [id number] Reading Location: [id number] Stewart Frausto DO IMG XR PROCEDURES Mary [...] Feliciano Mann M.D. BS T: Report ID: [id number] Reading Location: [id number] Procedure Note Feliciano Mann MD - 02/24/2025 [...] Feliciano Mann M.D. BS T: Report ID: [id number] Reading Location: [id number] Stewart Frausto DO IMG XR PROCEDURES Mary [...] Feliciano Mann M.D. BS T: Report ID: [id number] Reading Location: [place] [address] Procedure Note Feliciano Mann MD - 02/13/2025 [...] Feliciano Mann M.D. BS T: Report ID: [id number] Reading Location: [place] [address] Araceli Marr QUARTZ MINER IMG XR PROCEDURES Final Re sult from Last 3 Months Additional Health Concerns Infection Onset Date Last Indicated MDR gram neg/ESBL Comment:E.coli ESBL urine 01/18/16, 01/21/16 01/22/2016 01/22/2016 Insurance AETNA MEDICARE COUNT INCLUDES THE [facility] MEDICARE AETNA MEDICARE Advance Directives For more information, please contact: [phone] * Full Code (Latest Code Status on File) Date Activated Date Inactivated Comments 02/13/2024 4:51 AM 02/15/2024 9:21 PM * Full Code Date Activated Date Inactivated Comments 02/18/2023 11:00 AM 02/18/2023 4:39 PM * Full Code Date Activated Date Inactivated Comments 02/19/2021 8:07 AM 02/19/2021 2:26 PM Care Teams Clean Room Technician Relationship Specialty Start Date End Date Clari Brink MD PCP - General Family Medicine 08/16/18
--- OUTSIDE RECORDS SUMMARY | 2025-04-10 13:02 | XMS_ITS | Data Portability ---
Author Organization [facility] Address [address] [place] [phone] Assessment No assessment recorded. Plan of Treatment Reminders Order Date Submit Date Provider Last Modified By Organization Details Last Modified Time Details Appointments None record ed. Lab None record ed. Referral None record ed. Procedures None record ed. Surgeries None record ed. Imaging None record ed. Medication Orders None record ed. Patient TargetsNo targets recorded. Patient InstructionsNo instructions recorded. Reason for Referral None Reported. Medical Equipment None Reported. Vitals None Recorded Social History None recorded. Functional Status None recorded. Mental Status None recorded. Family History Nothing Reported. Medical History No medical history recorded. Gynecological HistoryNo gynecological history recorded. Obstetrics History GPAL:G 0 P 0 0 0 0 Immunizations Vaccine Type Date Status Note Provider Nam e and Address Organization Details Recorded Time COVID-19, mRNA, LNP-S, PF, 100 mcg/0.5mL dose or 50 mcg/0.25mL dose 12/27/2020 completed LIVIA Helton, [facility] 12/27/2020 16:02:35 COVID-19, mRNA, LNP-S, PF, 100 mcg/0.5mL dose or 50 mcg/0.25mL dose 01/24/2021 completed [address] Baum MA [facility], [facility] 01/24/2021 13:20:26 Past Encounters Encounter ID Performer Location Encounter Start Date Encounter Closed Date Diagnosis/Indication Diagnosis SNOMED-CT Code Diagnosis ICD10 Code Diagnosis Note [id number] MD Kyel Tavera [address] [facility] [place] [address] 12/27/2020 11:57:26 12/28/2020 06:14:30 Administration of SARS-CoV-2 antigen vaccine 936621587 Z23 [id number] MD Kyle Tavera [address] [facility] [place] [address] 01/24/2021 11:45:15 01/25/2021 07:31:38 Administration of SARS-CoV-2 antigen vaccine 697251002 Z23 Health Concerns Section Related Observation LastModified by Organization Detai ls LastModified Time None Recorded Concern Status LastModified by Organization Details LastModified Time None Recorded Advance Directives Directive None Recorded Payers Encounter Date Sequence Insurance Name Policy Number Policy [place] Covered Member ID [place] Member ID Guarantor Name 12/27/2020 1 [facility] (MEDICARE REPLACEMENT/A DVANTAGE - PPO) [id number] Desire Pearson [id number] Desire Pearson 01/24/2021 1 [facility] (MEDICARE REPLACEMENT/A DVANTAGE - PPO) [id number] Desire Pearson [id number] Desire Pearson 01/24/2021 2 [place] Desire Pearson [id number] Desire Pearson OBGyn Episode No OBEpisode recorded.
--- OUTSIDE RECORDS SUMMARY | 2025-04-10 13:02 | XMS_ITS | Encounter Summary ---
Author Organization [facility] Address [address] [place] [address] Care Team Providers Care Formal Waiter/Waitress Name Role Phone Clari Brink MD Primary Care Provider [phone] Reason for Referral * Consultation (Routine) - Closed Specialty Diagnoses / Procedures Referred By Andreea t Referred To Contact Orthopedic Surgery Diagnoses Closed avulsion fracture of lateral malleolus of right fibula, initial encounter Araceli Marr NP [address] [address] Phone: tel: fax: [facility] [address] [place] [address] Phone: tel: fax: Referral ID Status Reason Start Date Expiration Date V isits Requested Visits Authorized [id number] Closed Specialty Services Required 02/13/2025 03/15/2026 1 1 Question Answer Please select the performing region: [facility] [[id number]] Please select the performing department: [facility] [[id number]] # of visits: 1 Encounter Details Date Type Department Care Team (Late st Contact Info) Description 02/13/2025 Results Follow-Up [facility] at [address] [phone] Araceli Marr, MAILING JOGGER [address] [place] [address] XR Ankle Right 3 or More Views Social History Tobacco Use Types Packs/Day Years Used Date Smoking Tobacco: Never Smokeless Tobacco: Never Alcohol Use Standard Drinks/Week Comments No 0 (1 standard drink = 0.6 oz pur e alcohol) [facility] Utilities Answer Date Recorded In the past 12 months has [employer], gas, oil, or water [employer] threatened to shut off services in your [...] week 02/15/2024 How often do you attend [facility] ch or adventist services? More than 4 times per year [...] place to sleep or slept in a chcf (including now)? 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
== END 2025-04-10 12:57 | disposition home or self-care (01) ==
LOC: ANHIMG 12:59
PROVIDERS: PCP Family Medicine; Visit Provider Student in an Organized Health Care Education/Training Program
DX: Z13.820 Encounter for screening for osteoporosis (principal); Z78.0 Asymptomatic menopausal state; Z12.31 Encounter for screening mammogram for malignant neoplasm of breast
CPT/HCPCS: 77080

== ENCOUNTER 2025-09-21 08:58 | Outpatient (CLI) | payer MEDICARE, SELFPAY ==
--- OUTSIDE RECORDS SUMMARY | 2025-09-21 09:22 | XMS_ITS | Clinical Summary ---
Author Organization [facility] Medical [facility] 2 Address [address] [address] Care Team Providers Care Manager Of Housekeeping Name Role Phone Clari Brink MD Primary Care Provider [phone] Allergies Active Allergy Reactions Criticality Noted Date Comments Ciprofloxacin-Dexamethasone Muscle pain Medium 019 Tendon pain Nitrofurantoin Chills Low 12/27/2007 Sulfa (Sulfonamide Antibiotics) Rash Medium Typhoid Vaccine Rash Medium 09/19/2021 Medications psyllium 3.4 gram/5.8 gram powder 0.52 gm 3x qd 8 Active estrogens, conjugated, (PREMARIN) vaginal cream Insert into the vagina daily Active go-qpcujuq-etx-ir on fm-FA-vitK 18 mg iron-600 mcg-80 mcg [...] rosuvastatin (CRESTOR) 5 mg tablet 4 Active artificial tears,hypromellos e, 0.3 % drops Administer into affected eye(s) Active flecainide (TAMBOCOR) 50 mg tabletIndications :Premature atrial contractions TAKE 1 TABLET BY MOUTH TWICE A DAY 180 tablet Active Active Problems Problem Noted Date Diagnosed Date AMEZQUITA (dyspnea on exertion) 06/06/2025 Encounter for monitoring flecainide therapy 05/23 Disorder of mitral valve 10/14/2024 Overview (10/14/2024): [...] Encounters Date Type Department Care Team Description 06/23/2025 8:00 AM CDT Ancillary Procedure [facility] Medical Group Cardiology at [address] [place] [address] History of CVA (cerebrovascular accident); Premature atrial contractions; Dyslipidemia; Encounter for monitoring flecainide therapy; AMEZQUITA (dyspnea on exertion) 06/23/2025 Results Follow-Up [facility] Medical Group Cardiology [address] [place] [address] Prashant Pardo MD NM MPI SPECT (Rest and/or Stress) Multiple Studies from Last 3 Months Surgical History Surgery [...] drink = 0.6 oz pur e alcohol) [facility] Utilities Answer Date Recorded In the past 12 months has [employer], oil, or water [employer] threatened to shut off services in your home? No 02/15/2024 Social Connection and Isolation Panel Answer Date Recorded In a typical week, how many times do you talk on the phone with family, friends, or neighbors? More than three times a week 02/15/2024 How often do you get togethe r with friends or relatives? More than three times a week 02/15/2024 How often do you attend [facility] ch or islam services? More than 4 times per year 02/15/2024 Do you belong to any clubs o r organizations such as shinto groups, unions, fraternal or athletic groups, or [...] place to sleep or slept in a retirement (including now)? 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 Sexual Orientation Not on file Obstetrics History Last Filed Vital Signs Vital Sign Reading Time Taken Comments Blood Pressure 130/70 06/06/2025 8:38 AM CDT Pulse 69 06/06/2025 8:38 AM CDT Temperature 36.1 C (96.9 F) 02/13/2025 4:00 PM CDT Respiratory Rate 16 03/20/2025 9:40 AM CDT Oxygen Saturation 97% 06/06/2025 8:38 AM CDT Inhaled Oxygen Concentration - - Weight 69.4 kg (153 lb) 06/06/2025 8:38 AM CDT Height 157.5 cm (5' 2) 06/06/2025 8:38 AM CDT Body Mass Index 27.98 06/06/2025 8:38 AM CDT Plan of Treatment Health Maintenance Due Date Last Done Comments Osteoporosis Screening-Bone Density Scan 1940 Well Visit 65+ 2003 DTaP/Tdap/Td Vaccine (1 - Tdap) 08/26/2007 08/25/2007, 04/25/1992, 04/17/1971 Zoster Vaccine (2 of 3) 02/14/2019 12/20/19 19, 08/04/2018, 12/09/2007 Pneumococcal vaccine 65+ (2 of 2 - PCV) 08/10/2021 08/10/2020, 09/04/1998 Depression Screening 02/11/2025 02/12/2024, 02/12/20 24 Fall Risk Assessment 02/14/2025 02/15/2024 Covid-19 Vaccine (3 - season) 07/24/202502/2021, 12/27/2020 Influenza Vaccine (#1) 2025 09/13/2019, 2017 Hepatitis B Screening Completed 01/20/1994 , 08/19/1993, 07/22/1993 Procedures Procedure Name Priority Date/Time Associated Diagnosis Comments NM MPI SPECT (REST AND/OR STRESS) MULTIPLE STUDIES Schedule Routine, Read Routine (OP Routine) 06/23/2025 9:06 AM CDT History of CVA (cerebrovascular accident) Premature atrial contractions Dyslipidemia Encounter for monitoring flecainide therapy AMEZQUITA (dyspnea on exertion) from Last 3 Months Results * NM MPI SPECT (Rest and/or Stress) Multiple Studies (06/23/2025 9:06 AM CDT) Anatomical Region Laterality Modality Body N/A Electrocardiogra phy 06/23/2025 8:00 AM CDT Narrative 06/23/2025 12:54 PM CDT [facility] Medical Group Cardiology [address], [place] [address] [address], [place] [address] [address], [place] [address] P:[phone] P:[phone] MPI Imaging Report Patient Name: DESIRE PEARSON J : 1940 Study Date: 06/23/2025 8:00:00 AM Gender: F Tech: [facility] Location: [facility] Provider: PRASHANT PARDO Height(Cm): 157.5 BSA: Weight(Kg): 69.4 Heart Rate: 113 BMI: 27.98 Order Provider: PRASHANT PARDO PHYSICIAN: Primary Care Physician: Dr. Brink. [facility] Physician: Matthias Pardo M.D. Stress Supervision: Stewart Perez M.D.,F.A.C.C. Stress Interpreting Physician: Stewart Perez M.D.,F.A.C.CRosy Image Interpreting Physician: Stewart Perez M.D.,F.A.C.C. PROCEDURES: Pharmacologic SPECT Report: Myocardial perfusion imaging with Tc99M Sestamibi SPECT at rest and stress post regadenoson (Lexiscan) infusion. INDICATIONS: Family Hx CAD, Palpitations, Z86.73 Personal history of transient ischemic attack (TIA), and cerebral infarction without residual deficits, I49.1 Atrial premature depolarization, E78.5 Hyperlipidemia, unspecified, Z51.81 Encounter for therapeutic drug level monitoring, Z79.899 Other assisted (current) drug therapy, and R06.09 Other forms of dyspnea. FINDINGS: Procedural Findings: One day rest/stress was used. Tc99m Sestamibi injected IV at rest was 10.8 millicuries 32.2 millicuries of Tc99M Sestamibi injected IV during Lexiscan stress Lexiscan 0.4mg administered IV over 10 seconds. Patient had no symptoms during stress test. Baseline heart rate was 59 BPM Maximum Heart Rate Achieved was: 89 BPM Baseline blood pressure was 130/82 mmHg Post Stress Blood Pressure was 126/71 mmHg Termination: Protocol complete. Resting ECG: Sinus bradycardia, o/w wnl. Post ECG: No diagnostic ST changes. Perfusion Findings: A TID of 0.94 was automatically calculated. defect 1: Size is small. Severity is mild. Location of defect is in the apex. Reversibility is not present, defect is fixed. Type of defect is most likely attenuation artifact. LV Function: Left ventricular ejection fraction is 58 %. CONCLUSIONS: Sinus bradycardia, o/w wnl. No diagnostic ST changes. Left ventricular ejection fraction is 58 %. Size is small. Severity is mild. Location of defect is in the apex. Reversibility is not present, defect is fixed. Type of defect is most likely attenuation artifact. Attenuation correction utilized for the interpretation of this study. Electronically Signed By: Stewart Perez MD, [facility] 06/23/2025 12:54:27 PM CDT Electronically Signed By: Stewart Perze MD, [facility] 06/23/2025 12:54:27 PM CDT Procedure Note Stewart Perez MD - 06/23/2025 [facility] Medical Group Cardiology [address] [facility] [address] [address] [address] [facility] [address], [place] [address], [place] [address] P:[phone] P:[phone] MPI Imaging Report Patient Name: DESIRE PEARSON J : 1940 Study Date: 06/23/2025 8:00:00 AM Gender: F Tech: [facility] Location: [facility] Provider: PRASHANT PARDO Height(Cm): 157.5 BSA: Weight(Kg): 69.4 Heart Rate: 113 BMI: 27.98 Order Provider: PRASHANT PARDO PHYSICIAN: Primary Care Physician: Dr. Brink. [facility] Physician: Matthias Pardo M.D. Stress Supervision: Stewart Perez M.D.,Cecile Stress Interpreting Physician: Stewart Perez M.D.,[place]ec[place] Image Interpreting Physician: Stewart Perez M.D.,[place]. PROCEDURES: Pharmacologic SPECT Report: Myocardial perfusion imaging with Tc99M Sestamibi SPECT at rest and stresspost regadenoson (Lexiscan) infusion. 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 FINDINGS: Procedural Findings: One day rest/stress was used. Tc99m Sestamibi injected IV at rest was 10.8 millicuries 32.2 millicuries of Tc99M Sestamibi injected IV during Lexiscan stress Lexiscan 0.4mg administered IV over 10 seconds. Patient had no symptoms during stress test. Baseline heart rate was 59 BPM Maximum Heart Rate Achieved was: 89 BPM Baseline blood pressure was 130/82 mmHg Post Stress Blood Pressure was 126/71 mmHg Termination: Protocol complete. Resting ECG: Sinus bradycardia, o/w wnl. Post ECG: No diagnostic ST changes. Perfusion Findings: A TID of 0.94 was automatically calculated. defect 1: Size is small. Severity is mild. Location of defect is in the apex.Reversibility is not present, defect is fixed. Type of defect is most likely attenuationartifact. LV Function: Left ventricular ejection fraction is 58 %. CONCLUSIONS: Sinus bradycardia, o/w wnl. No diagnostic ST changes. Left ventricular ejection fraction is 58 %. Size is small. Severity is mild. Location of defect is in the apex.Reversibility is not present, defect is fixed. Type of defect is most likely attenuationartifact. Attenuation correction utilized for the interpretation of this study. Electronically Signed By: Stewart Perez MD, [facility] 06/23/2025 12:54:27 PM CDT Electronically Signed By: Stewart Perez MD, [facility] 06/23/2025 12:54:27 PM CDT Prashant Pardo MD IMG NM PROCEDURES Final R esult from Last 3 Months Additional Health Concerns Infection Onset Date Last Indicated MDR gram neg/ESBL Comment:E.coli ESBL urine 01/18/16, 01/21/16 01/22/2016 01/22/2016 Insurance AETNA MEDICARE AETNA MEDICARE AETNA MEDICARE Advance Directives For more information, please contact: [phone] * Full Code (Latest Code Status on File) Date Activated Date Inactivated Comments 02/13/2024 4:51 AM 02/15/2024 9:21 PM * Full Code Date Activated Date Inactivated Comments 02/18/2023 11:00 AM 02/18/2023 4:39 PM * Full Code Date Activated Date Inactivated Comments 02/19/2021 8:07 AM 02/19/2021 2:26 PM Care Teams Manager Of Housekeeping Relationship Specialty Start Date End Date Clari Brink MD PCP - General Family Medicine 08/16/18
--- OUTSIDE RECORDS SUMMARY | 2025-09-21 09:22 | XMS_ITS | Encounter Summary ---
Author Organization [facility] Healthcare Address [address] [place] [address] Care Team Providers Care Workforce Management Coordinator Name Role Phone Clari Brink MD Primary Care Provider [phone] Encounter Details Date Type Department Care Team (Late st Contact Info) Description 09/05/2024 Orders Only [facility] Information Management [address] [place] [address] Scanning, Provider Social History Tobacco Use Types Packs/Day Years Used Date Smoking Tobacco: Never Smokeless Tobacco: Never Alcohol Use Standard Drinks/Week Comments No 0 (1 standard drink = 0.6 oz pur e alcohol) [facility] Utilities Answer Date Recorded In the past 12 months has [employer] electric, gas, oil, or water company threatened [...] often do you attend chur ch or orthodoxy services? More than 4 times per year 02/15/2024 Do you belong to any clubs o r organizations such as episcopalian groups, unions, fraternal or athletic groups, or [...] place to sleep or slept in a correction (including now)? 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 Sexual Orientation Not on file documented as of this encounter Plan of Treatment Not on file documented as of this encounter Procedures Procedure Name Priority Date/Time Associated Diagnosis Comments SCAN - LABS 09/05/2024 documented in this encounter Results * SCAN - LABS (09/05/2024) us Provider Scanning Final Result documented in this encounter Visit Diagnoses Not on filedocumented in this encounter Additional Health Concerns Infection Onset Date Last Indicated Resolved Time MDR gram neg/ESBL Comment:E.coli ESBL urine 01/18/16, 01/21/16 01/22/2016 01/22/2016 documented as of this encounter Care Teams Workforce Management Coordinator Relationship Specialty Start Date End Date Clari Brink MD PCP - General Family Medicine 08/16/18 documented as of this encounter
[2025-09-21 19:00] LABS: Hematocrit 38.8 % (37.0-47.0); Hemoglobin 12.0 g/dL (12.0-15.0); Immature Granulocyte Percent A 0.2 % (0-0.5); Lymphocytes Absolute Auto 1.71 K/mm3 (0.9-3.2); Mean Corpuscular HGB Conc 30.9 g/dl (32-36); Mean Corpuscular Hemoglobin 28.9 pg (26-34); Mean Corpuscular Volume 93.5 fl (80-100); Nucleated Red Blood Cells Absolute Auto 0.000 K/mm3 (0.0-0.012); Nucleated Red Blood Cells Perc 0.0 % (0.0-0.2); Platelet Count Result 140 k/mm3 (150-375); Red Blood Count 4.15 M/mm3 (4.2-5.4); White Blood Count 4.5 K/mm3 (4.5-10.0)
[2025-09-21 19:16] LABS: Alanine Aminotransferase 26 U/L (6-35); Albumin Level 3.7 g/dL (3.5-5.1); Alkaline Phosphatase 54 U/L (38-126); Anion Gap 5 mmol/L (4-12); Aspartate Amino Transferase 53 U/L (14-36); Bilirubin,Total 1.0 mg/dL (0.2-1.3); Blood Urea Nitrogen 22 mg/dL (7-17); Calcium 8.9 mg/dL (8.4-10.2); Carbon Dioxide 28 mmol/L (22-30); Chloride 103 mmol/L (98-107); Cholesterol 120 mg/dL (0-200); Estimated Glomerular Filt Rate > 60; Glucose 63 mg/dL (65-110); HDL Direct 69 mg/dL; Potassium 4.4 mmol/L (3.4-5.0); Sodium 136 mmol/L (137-145); Total Protein 6.9 g/dL (6.3-8.2); Triglycerides 52 mg/dL (<150)
== END 2025-09-21 08:59 | disposition home or self-care (01) ==
LOC: ANHGOSHLAB 08:59
PROVIDERS: PCP Family Medicine Adolescent Medicine
DX: E78.2 Mixed hyperlipidemia (principal); R53.83 Other fatigue
CPT/HCPCS: 36415; 80053; 80061; 85025